=== PATIENT | female | born 1965 | race Caucasian/White ===

== ENCOUNTER → 2017-08-21 08:23 | Outpatient (CLI) | payer OTHER, SELFPAY | PROVIDERS: Family Provider Family Medicine; PCP Family Medicine; Visit Provider Internal Medicine Endocrinology, Diabetes & Metabolism | DX: N20.0 Calculus of kidney (principal) ==

== ENCOUNTER → 2017-09-13 06:02 | Outpatient (CLI) | payer OTHER, SELFPAY ==
[2017-09-13 07:59] LABS: BUN 22 mg/dL (7-18); Creatinine, Serum 1.04 mg/dL (0.55-1.02); Glucose 110 mg/dL (74-106)
[2017-09-13 08:00] LABS: ALB/GLOB Ratio 1.2 RATIO (0.9-2.4); AST(SGOT) 25 U/L (15-37); Alanine Aminotransfer ALT/SGPT 54 U/L (13-56); Albumin, Serum 3.8 g/dL (3.2-5.0); Alkaline Phosphatase 132 U/L (45-117); Anion Gap 10 (5-15); BUN/Creat Ratio 21.2 RATIO (10-20); CPK Total, Creatine Kinase 73 U/L (26-192); Chloride 98 mmol/L (98-107); EST Glomerular Filtration Rate 59 mL/min (>60); Est Glom Filt Rate - Afr Amer 71 mL/min (>60); Globulin 3.3 g/dL (2.2-4.2); Potassium 3.4 mmol/L (3.5-5.1); Protein, Total 7.1 g/dL (6.4-8.2); Sodium Level 136 mmol/L (136-145); Thyroid Stim Hormone (TSH) 1.24 uIU/mL (0.358-3.74)
[2017-09-13 08:26] LABS: PTHIN 48.3 pg/mL (18.4-80.1)
== END ==
PROVIDERS: Family Provider Family Medicine; PCP Family Medicine; Visit Provider Internal Medicine Endocrinology, Diabetes & Metabolism
DX: E03.8 Other specified hypothyroidism (principal); E21.1 Secondary hyperparathyroidism, not elsewhere classified; E83.42 Hypomagnesemia
CPT/HCPCS: 36415; 80053; 82550; 83735; 83970; 84443

== ENCOUNTER → 2017-09-25 16:46 | Outpatient (CLI) | payer OTHER, SELFPAY ==
[2017-09-25 17:39] LABS: Anion Gap 6 (5-15); BUN 25 mg/dL (7-18); BUN/Creat Ratio 27.3 RATIO (10-20); Calcium,Total 8.7 mg/dL (8.5-10.1); Chloride 105 mmol/L (98-107); Creatinine, Serum 0.92 mg/dL (0.55-1.02); EST Glomerular Filtration Rate 68 mL/min (>60); Est Glom Filt Rate - Afr Amer 82 mL/min (>60); Glucose 101 mg/dL (74-106); Potassium 3.7 mmol/L (3.5-5.1); Sodium Level 139 mmol/L (136-145)
== END ==
PROVIDERS: Family Provider Family Medicine; PCP Family Medicine; Visit Provider Family Medicine
DX: E87.6 Hypokalemia (principal)
CPT/HCPCS: 36415; 80048

== ENCOUNTER → 2017-10-25 06:22 | Outpatient (CLI) | payer OTHER, SELFPAY ==
[2017-10-25 07:30] LABS: ALB/GLOB Ratio 1.1 RATIO (0.9-2.4); AST(SGOT) 16 U/L (15-37); Alanine Aminotransfer ALT/SGPT 23 U/L (13-56); Albumin, Serum 3.8 g/dL (3.2-5.0); Alkaline Phosphatase 118 U/L (45-117); Anion Gap 8 (5-15); BUN 18 mg/dL (7-18); BUN/Creat Ratio 17.6 RATIO (10-20); Chloride 99 mmol/L (98-107); Creatinine, Serum 1.02 mg/dL (0.55-1.02); EST Glomerular Filtration Rate 60 mL/min (>60); Est Glom Filt Rate - Afr Amer 73 mL/min (>60); Globulin 3.4 g/dL (2.2-4.2); Glucose 116 mg/dL (74-106); Potassium 3.5 mmol/L (3.5-5.1); Protein, Total 7.2 g/dL (6.4-8.2); Sodium Level 137 mmol/L (136-145)
== END ==
PROVIDERS: Family Provider Family Medicine; PCP Family Medicine
DX: E03.8 Other specified hypothyroidism (principal)
CPT/HCPCS: 36415; 80053

== ENCOUNTER → 2017-11-16 06:25 | Outpatient (CLI) | payer OTHER, SELFPAY ==
--- NOTE | 2017-11-16 06:25 | DT_ITS ---
This patient was seen during an EMR downtime November 13, 2017 - November 20, 2017. This patient may have a combination of paper and electronic documentation or all paper documentation. All documentation is viewable within the e-chart portion of [facility] for each patient visit.
[2017-11-21 01:43] LABS: ALB/GLOB Ratio 1.2 RATIO (0.9-2.4); AST(SGOT) 16 U/L (15-37); Alanine Aminotransfer ALT/SGPT 36 U/L (13-56); Albumin, Serum 3.8 g/dL (3.2-5.0); Alkaline Phosphatase 113 U/L (45-117); Anion Gap 11 (5-15); BUN 21 mg/dL (7-18); Chloride 99 mmol/L (98-107); EST Glomerular Filtration Rate 62 mL/min (>60); Est Glom Filt Rate - Afr Amer 75 mL/min (>60); Free T3 3.2 pg/mL (2.18-3.98); Globulin 3.3 g/dL (2.2-4.2); Glucose 98 mg/dL (74-106); Potassium 3.9 mmol/L (3.5-5.1); Protein, Total 7.1 g/dL (6.4-8.2); Sodium Level 138 mmol/L (136-145); T4 Total, Thyroxin 14.7 ug/dL (4.8-13.9)
[2017-11-21 01:44] LABS: Thyroid Stim Hormone (TSH) 1.82 uIU/mL (0.358-3.74)
== END ==
PROVIDERS: Family Provider Family Medicine; PCP Family Medicine; Visit Provider Internal Medicine Endocrinology, Diabetes & Metabolism
DX: E03.9 Hypothyroidism, unspecified (principal); E87.6 Hypokalemia
CPT/HCPCS: 36415; 80053; 84436; 84443; 84481

== ENCOUNTER → 2018-05-14 14:50 | Outpatient (CLI) | payer OTHER, SELFPAY ==
[2018-05-14 18:22] LABS: Anion Gap 10 (5-15); BUN 20 mg/dL (7-18); BUN/Creat Ratio 22.1 RATIO (10-20); Calcium,Total 9.2 mg/dL (8.5-10.1); Chloride 100 mmol/L (98-107); EST Glomerular Filtration Rate 69 mL/min (>60); Est Glom Filt Rate - Afr Amer 83 mL/min (>60); Free T3 3.2 pg/mL (2.18-3.98); Glucose 85 mg/dL (74-106); Potassium 3.8 mmol/L (3.5-5.1); Sodium Level 139 mmol/L (136-145); T4 Total, Thyroxin 14.3 ug/dL (4.8-13.9); Thyroid Stim Hormone (TSH) 0.98 uIU/mL (0.358-3.74)
== END ==
PROVIDERS: Family Provider Family Medicine; PCP Family Medicine; Visit Provider Family Medicine
DX: E03.9 Hypothyroidism, unspecified (principal); R60.9 Edema, unspecified
CPT/HCPCS: 36415; 80048; 84436; 84443; 84481

== ENCOUNTER → 2018-06-19 12:55 | Outpatient (CLI) | payer OTHER, SELFPAY ==
[2018-06-19 14:10] LABS: Vitamin D,25 Hydroxy 65.7 ng/mL (29.95-100.01)
[2018-06-19 14:11] LABS: PTHIN 36.8 pg/mL (18.4-80.1)
[2018-06-19 14:15] LABS: ALB/GLOB Ratio 1.2 RATIO (0.9-2.4); AST(SGOT) 24 U/L (15-37); Alanine Aminotransfer ALT/SGPT 56 U/L (13-56); Albumin, Serum 3.8 g/dL (3.2-5.0); Alkaline Phosphatase 108 U/L (45-117); Anion Gap 8 (5-15); BUN 14 mg/dL (7-18); BUN/Creat Ratio 15.4 RATIO (10-20); Calcium,Total 8.8 mg/dL (8.5-10.1); Chloride 102 mmol/L (98-107); Creatinine, Serum 0.91 mg/dL (0.55-1.02); EST Glomerular Filtration Rate 69 mL/min (>60); Est Glom Filt Rate - Afr Amer 83 mL/min (>60); Globulin 3.2 g/dL (2.2-4.2); Glucose 86 mg/dL (74-106); Potassium 3.8 mmol/L (3.5-5.1); Sodium Level 138 mmol/L (136-145); Thyroid Stim Hormone (TSH) 1.44 uIU/mL (0.358-3.74)
== END ==
PROVIDERS: Family Provider Family Medicine; PCP Family Medicine; Referring Provider Internal Medicine Endocrinology, Diabetes & Metabolism; Visit Provider Internal Medicine Endocrinology, Diabetes & Metabolism
DX: E03.8 Other specified hypothyroidism (principal); E21.1 Secondary hyperparathyroidism, not elsewhere classified; E55.9 Vitamin D deficiency, unspecified
CPT/HCPCS: 36415; 80053; 82306; 83970; 84443

== ENCOUNTER → 2018-11-16 08:37 | Outpatient (CLI) | payer OTHER, SELFPAY ==
--- NOTE | 2018-11-16 08:43 | BI_ITS ---
MAMMOGRAPHY - BILATERAL SCREENING REASON FOR EXAM: Female, 53 years old. Routine annual screening examination. PERTINENT HISTORY: Non-contributory. TECHNIQUE: Digital bilateral breast leatha (3D mammographic acquisition) in the CC and MLO projections. 2-D mediolateral oblique (MLO) and craniocaudad (CC) views of both breasts were obtained. CAD: Full Field Digital Mammography with Computer Added Detection was performed. COMPARISON: Comparison is made with prior study January 16, 2017. FINDINGS: Breast Composition: There are scattered areas of fibroglandular density. There are no dominant masses or suspicious calcifications. Stable benign-appearing bilateral axillary lymph nodes. No other significant abnormalities are identified. There has been no significant change since the prior study. BI/SCREEN MAMM (CAD) W/LEATHA BILAT IMPRESSION: Stable bilateral screening mammogram. Yearly follow-up mammogram recommended. (A) ASSESSMENT CATEGORY: BIRADS Category 2: Benign. A letter regarding these results will be sent to the patient by the facility within 30 days. Approximately 10% of breast cancers are not detected by mammography. A normal mammogram should not delay biopsy of a clinically suspicious abnormality. [id number] Electronically Signed: Frank Akins, at 9:43 EDT , Service support ,
== END ==
PROVIDERS: Family Provider Family Medicine; PCP Family Medicine; Referring Provider Obstetrics & Gynecology; Visit Provider Obstetrics & Gynecology
DX: Z12.31 Encounter for screening mammogram for malignant neoplasm of breast (principal)
CPT/HCPCS: 77063; 77067

== ENCOUNTER → 2018-12-25 10:15 | Outpatient (CLI) | payer OTHER, SELFPAY ==
[2018-12-25 11:24] LABS: ALB/GLOB Ratio 1.1 RATIO (0.9-2.4); AST(SGOT) 37 U/L (15-37); Alanine Aminotransfer ALT/SGPT 67 U/L (13-56); Albumin, Serum 3.5 g/dL (3.2-5.0); Alkaline Phosphatase 116 U/L (45-117); Anion Gap 8 (5-15); BUN 16 mg/dL (7-18); BUN/Creat Ratio 12.8 RATIO (10-20); Calcium,Total 8.5 mg/dL (8.5-10.1); Chloride 103 mmol/L (98-107); Cholesterol 140 mg/dL (200); Creatinine, Serum 1.25 mg/dL (0.55-1.02); EST Glomerular Filtration Rate 47 mL/min (>60); Est Glom Filt Rate - Afr Amer 57 mL/min (>60); Globulin 3.3 g/dL (2.2-4.2); Glucose 104 mg/dL (74-106); High Density Lipoprotein 49 mg/dL; Potassium 3.6 mmol/L (3.5-5.1); Protein, Total 6.8 g/dL (6.4-8.2); Sodium Level 140 mmol/L (136-145); Thyroid Stim Hormone (TSH) 0.73 uIU/mL (0.358-3.74); Triglycerides 112 mg/dL; Very Low Density Lipoprotein 22 mg/dL (5-40)
== END ==
PROVIDERS: Family Provider Family Medicine; PCP Family Medicine; Referring Provider Family Medicine; Visit Provider Family Medicine
DX: Z00.00 Encounter for general adult medical examination without abnormal findings (principal); E87.6 Hypokalemia; E03.9 Hypothyroidism, unspecified
CPT/HCPCS: 36415; 80053; 80061; 84443

== ENCOUNTER → 2019-01-24 06:38 | Outpatient (CLI) | payer OTHER, SELFPAY ==
[2019-01-24 07:36] LABS: ALB/GLOB Ratio 1.1 RATIO (0.9-2.4); AST(SGOT) 20 U/L (15-37); Alanine Aminotransfer ALT/SGPT 42 U/L (13-56); Albumin, Serum 3.8 g/dL (3.2-5.0); Alkaline Phosphatase 106 U/L (45-117); Anion Gap 6 (5-15); BUN 24 mg/dL (7-18); BUN/Creat Ratio 20.7 RATIO (10-20); Calcium,Total 9.2 mg/dL (8.5-10.1); Chloride 98 mmol/L (98-107); Creatinine, Serum 1.16 mg/dL (0.55-1.02); EST Glomerular Filtration Rate 52 mL/min (>60); Est Glom Filt Rate - Afr Amer 63 mL/min (>60); Globulin 3.6 g/dL (2.2-4.2); Glucose 131 mg/dL (74-106); Potassium 3.6 mmol/L (3.5-5.1); Protein, Total 7.4 g/dL (6.4-8.2); Sodium Level 136 mmol/L (136-145)
== END ==
PROVIDERS: Family Provider Family Medicine; PCP Family Medicine
DX: E03.8 Other specified hypothyroidism (principal)
CPT/HCPCS: 36415; 80053

== ENCOUNTER → 2019-08-26 06:31 | Outpatient (CLI) | payer OTHER, SELFPAY ==
[2019-08-26 08:15] LABS: ALB/GLOB Ratio 1.1 RATIO (0.9-2.4); AST(SGOT) 21 U/L (15-37); Alanine Aminotransfer ALT/SGPT 44 U/L (13-56); Albumin, Serum 3.7 g/dL (3.2-5.0); Alkaline Phosphatase 99 U/L (45-117); Anion Gap 6 (5-15); BUN 20 mg/dL (7-18); Calcium,Total 8.7 mg/dL (8.5-10.1); Chloride 103 mmol/L (98-107); Creatinine, Serum 0.91 mg/dL (0.55-1.02); EST Glomerular Filtration Rate 68 mL/min (>60); Est Glom Filt Rate - Afr Amer 83 mL/min (>60); Globulin 3.5 g/dL (2.2-4.2); Glucose 119 mg/dL (74-106); Potassium 3.4 mmol/L (3.5-5.1); Protein, Total 7.2 g/dL (6.4-8.2); Sodium Level 138 mmol/L (136-145)
== END ==
PROVIDERS: PCP Family Medicine; Referring Provider Internal Medicine Endocrinology, Diabetes & Metabolism; Visit Provider Internal Medicine Endocrinology, Diabetes & Metabolism
DX: E03.8 Other specified hypothyroidism (principal); E04.2 Nontoxic multinodular goiter; M85.9 Disorder of bone density and structure, unspecified
CPT/HCPCS: 36415; 80053; 82306; 84443

== ENCOUNTER → 2019-11-21 | Outpatient (CLI) | payer OTHER, SELFPAY ==
--- NOTE | 2019-11-21 10:06 | BI_ITS ---
MAMMOGRAPHY - BILATERAL SCREENING REASON FOR EXAM: Female, 54 years old. Routine annual screening examination. PERTINENT HISTORY: Non-contributory. TECHNIQUE: Digital bilateral breast leatha (3D mammographic acquisition) in the CC and MLO projections. 2-D mediolateral oblique (MLO) and craniocaudad (CC) views of both breasts were obtained. CAD: Full Field Digital Mammography with Computer Added Detection was performed. COMPARISON: Comparison is made with prior examination dated November 16, 2018. FINDINGS: Breast Composition: There are scattered areas of fibroglandular density. There are no dominant masses or suspicious calcifications. No other significant abnormalities are identified. There has been no significant change since the prior study. BI/SCREEN MAMM (CAD) W/LEATHA BILAT IMPRESSION: Stable bilateral screening mammogram. Yearly follow-up mammogram recommended. (A) ASSESSMENT CATEGORY: BIRADS Category 1: Negative. A letter regarding these results will be sent to the patient by the facility within 30 days. Approximately 10% of breast cancers are not detected by mammography. A normal mammogram should not delay biopsy of a clinically suspicious abnormality. [id number] Electronically Signed: Frakn Akins, at 10:47 EDT , Service support ,
== END | disposition home or self-care (01) ==
LOC: OPBI 10:03
PROVIDERS: PCP Family Medicine; Referring Provider Obstetrics & Gynecology; Visit Provider Obstetrics & Gynecology
DX: Z12.31 Encounter for screening mammogram for malignant neoplasm of breast (principal)
CPT/HCPCS: 77063; 77067

== ENCOUNTER → 2020-03-10 06:30 | Outpatient (CLI) | payer OTHER, SELFPAY ==
[2020-03-10 07:26] LABS: ALB/GLOB Ratio 1.1 RATIO (0.9-2.4); AST(SGOT) 18 U/L (15-37); Alanine Aminotransfer ALT/SGPT 39 U/L (13-56); Albumin, Serum 3.5 g/dL (3.2-5.0); Alkaline Phosphatase 105 U/L (45-117); Anion Gap 3 (5-15); BUN 17 mg/dL (7-18); BUN/Creat Ratio 17.5 RATIO (10-20); Calcium,Total 8.5 mg/dL (8.5-10.1); Chloride 106 mmol/L (98-107); Creatinine, Serum 0.97 mg/dL (0.55-1.02); EST Glomerular Filtration Rate 63 mL/min (>60); Est Glom Filt Rate - Afr Amer 76 mL/min (>60); Globulin 3.2 g/dL (2.2-4.2); Glucose 103 mg/dL (74-106); Potassium 3.6 mmol/L (3.5-5.1); Protein, Total 6.7 g/dL (6.4-8.2); Sodium Level 139 mmol/L (136-145); Thyroid Stim Hormone (TSH) 2.74 uIU/mL (0.358-3.74)
== END ==
PROVIDERS: PCP Family Medicine; Referring Provider Internal Medicine Endocrinology, Diabetes & Metabolism; Visit Provider Internal Medicine Endocrinology, Diabetes & Metabolism
DX: E03.8 Other specified hypothyroidism (principal)
CPT/HCPCS: 36415; 80053; 83735; 84443

== ENCOUNTER → 2020-07-22 09:43 | Outpatient (CLI) | payer OTHER, SELFPAY ==
[2020-07-22 12:41] LABS: Absolute Lymphocyte Count 1.39 X10^3/uL (0.83-4.51); Absolute Neutrophil Count 5.2 X10^3/uL (2.0-7.7); Basophil# 0.05 X10^3/uL; Basophil% 0.7 % (0-1); Eosinophil# 0.16 X10^3/uL; Eosinophils% 2.1 % (0-5); Hematocrit 43.5 % (37-47); Hemoglobin 14.8 g/dL (12.0-15.0); Lymphocyte # 1.39 X10^3/ul (4.0); Lymphocyte % 18.3 % (19-41); Mean Corpuscular Hgb 31.9 pg (27.0-32.0); Mean Corpuscular Volume 93.8 fL (81-99); Mean Platelet Vol. 12.2 fl (6.2-12.0); Monocyte# 0.83 X10^3/uL; Monocyte% 10.9 % (0-10); NRBC Flagged by Analyzer 0 % (0-5); Neutrophil # 5.15 X10^3/uL (2.7-7.7); Neutrophil % 67.7 % (47-70); Platelet Count 268 K/mm3 (150-450); RBC Distribution Width CV 11.9 % (11.6-14.6); RBC Distribution Width SD 40.9 fl (35.1-43.9); Red Blood Count 4.64 M/mm3 (4.2-5.4); White Blood Count 7.6 K/mm3 (4.4-11.0)
[2020-07-22 12:46] LABS: AST(SGOT) 31 U/L (15-37); Alanine Aminotransfer ALT/SGPT 54 U/L (13-56); Albumin, Serum 3.8 g/dL (3.2-5.0); Alkaline Phosphatase 112 U/L (45-117); Anion Gap 2 (5-15); BUN 12 mg/dL (7-18); BUN/Creat Ratio 12.2 RATIO (10-20); Calcium,Total 8.8 mg/dL (8.5-10.1); Chloride 99 mmol/L (98-107); Creatinine, Serum 0.98 mg/dL (0.55-1.02); EST Glomerular Filtration Rate 62 mL/min (>60); Est Glom Filt Rate - Afr Amer 76 mL/min (>60); Globulin 3.7 g/dL (2.2-4.2); Glucose 103 mg/dL (74-106); Lipase 60 U/L (73-393); Potassium 3.6 mmol/L (3.5-5.1); Protein, Total 7.5 g/dL (6.4-8.2); Sodium Level 135 mmol/L (136-145)
== END ==
PROVIDERS: PCP Family Medicine; Referring Provider Family Medicine; Visit Provider Family Medicine
DX: R10.9 Unspecified abdominal pain (principal)
CPT/HCPCS: 36415; 80053; 83690; 85025

== ENCOUNTER → 2020-07-22 16:32 | Outpatient (CLI) | payer OTHER, SELFPAY ==
--- NOTE | 2020-07-22 16:33 | US_ITS ---
STUDY: ABDOMINAL ULTRASOUND - RIGHT UPPER QUADRANT REASON FOR VISIT: Female, 55 years old. Right upper quadrant pain following eating. Nausea and vomiting. TECHNIQUE: Ultrasound evaluation of the right upper quadrant was performed with real-time and static huddleston-scale imaging. TECHNICAL QUALITY: Adequate. COMPARISON: None. FINDINGS: Liver: The liver measures 13.8 cm. There is normal echogenicity of the liver. The bile ducts are within normal limits. There is hepatic color flow. The direction of portal flow is hepatopetal. There is no demonstrated mass lesion. Gallbladder: Normal distended gallbladder. The gallbladder wall measures 2 mm. There is a negative sonographic Hernandez''s sign. There is no pericholecystic fluid. There are no gallstones. Common Bile Duct (C.B.D.): The common bile duct measures 5 mm. Pancreas: Normal size of the head, body and tail of the pancreas. There is normal echogenicity of the pancreas. There is no demonstrated pancreatic mass or cyst. Right Kidney: Normal size of the right kidney. The right kidney measures 10.1 cm. Normal renal cortex. There is no demonstrated renal mass or cyst. There is no right hydronephrosis. US/Abdomen Limited IMPRESSION: Normal right upper quadrant ultrasound examination. Electronically Signed: Terrance Garcia MD at 17:54 EST Tel , Service support ,
== END ==
PROVIDERS: PCP Family Medicine; Referring Provider Family Medicine; Visit Provider Family Medicine
DX: R10.9 Unspecified abdominal pain (principal)
CPT/HCPCS: 76705

== ENCOUNTER 2020-07-28 05:45 | Day surgery (SDC) | payer OTHER, SELFPAY ==
[2020-07-23 07:33] VITALS: BMI 30.1
[2020-07-28] VITALS (10 sets, daily range): BP systolic 95–137; BP diastolic 60–84; PULSE 54–64; RESP 16; TEMP 36.4–36.6; O2SAT 93–100; BMI 30.8
--- NOTE | 2020-07-28 06:10 | HP.PCM_ITS ---
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 Is patient in pain?: No Allergies bee venom protein (honey bee) Allergy (Mild, Verified 07/23/20 07:27) hives Medications cetirizine 10 mg capsule 10 mg PO DAILY PRN 07/23/20 [History Confirmed 07/23/20] cholecalciferol (vitamin D3) 25 mcg (1,000 unit) capsule 25 mcg PO BID cap 07/23/20 [History Confirmed 07/23/20] levothyroxine 88 mcg tablet 88 mcg PO DAILY tab 07/23/20 [History Confirmed 07/23/20] mecobalamin (vitamin B12) 5,000 mcg disintegrating tablet 5,000 mcg PO BID tab 07/23/20 [History Confirmed 07/23/20] ondansetron HCl 4 mg tablet 4 mg PO BID tab 07/23/20 [History Confirmed 07/23/20] spironolactone 100 mg tablet 100 mg PO DAILY 07/23/20 [History Confirmed 07/23/20] spironolactone 50 mg-hydrochlorothiazide 50 mg tablet 1 tab PO DAILY 07/23/20 [History Confirmed 07/23/20] Is last menstrual period known: No Post menopausal: Yes Patient : No PFSH Medical History (Updated 07/23/20 @ 08:[address] Kristian Jj MD) Abdominal pain (Acute) GERD (gastroesophageal reflux disease) (Acute) Hypothyroidism (Acute) Peripheral edema (Acute) Seasonal allergic reaction (Acute) Surgical History (Updated 07/23/20 @ 07:38 by Mouna Stone) History of breast lump removal (Acute) History of partial hysterectomy (Acute) History of wisdom tooth extraction (Acute) Hx of local excision of skin lesion (Acute) Status post fine needle biopsy (Acute) Family History (Updated 07/23/20 @ 07:39 by Mouna Stone) Father Cancer prostate CVA (cerebral vascular accident) Brother Heart disease Kidney disease Sister Gastric ulcer Scleroderma Social History (Updated 07/23/20 @ 08:[address] Kristian Jj MD) Smoking Status: Unknown if ever smoked HPI HPI HPI: MAHAD GARCIA, is a 55 F who presents to the office today for surgical consultation regarding acute episode of epigastric pain nausea some vomiting dark stools and diarrhea. The patient is referred by Dr. Go Gonzalez and a written copy my surgical consult recommendations will be returned to him The patient is noting tenderness in the right upper quadrant. She had laboratory obtained including a complete metabolic profile and a CBC which was not remarkable. She also had a gallbladder ultrasound performed yesterday which also was normal. She has not had any fever. She is still having some discomfort today. She has not had something like this in the past. It is of no that she previously fairly long-term was on a acid reducing medicine. Nizatidine. That became unavailable and she stopped taking it approximately May. With this abdominal pain she has had a episode yesterday of dark-colored stool. She has not had any jaundice. She does have a significant of seasonal allergies. Her most current recent colonoscopy was September 28, 2015. That was screening exam at age 50. That was normal with repeat exam recommended for [address] Tito Oquendo performed that procedure for her. She has never had an upper endoscopy. HPI HPI HPI: MAHAD GARCIA, is a 55 F who presents to the office today for ROS General General: No weight change, appetite, fatigue, colon cancer, breast cancer or weakness HEENT HEENT: No difficulty swallowing, eye injury, eye surgery, swollen glands or hoarseness Endo Endocrine: Yes thyroid disease; no diabetes mellitus, thyroid cancer, Hair loss, heat intolerance or cold intolerance Musc Musculoskeletal: Yes back problems; no arthritis, rheumatoid arthritis, gout or joint pain Cardio Cardiovascular: No murmur, pacemaker, heart disease, atrial fibrillation, high blood pressure, heart attack, heart stent, palpitations, shortness of breat with exertion or chest pain Psych Psychiatric: No depression, anxiety or hearing voices Resp Respiratory: No shortness of breath, No sleep apnea, No cough, No COPD, No asthma, No emphysema, No wheezing Gastro Gastrointestinal: Yes abdominal pain, Yes nausea or vomiting, Yes diarrhea, No constipation, No blood in stool, Yes acid reflux, No hemorrhoids, No ulcers, No gallbladder problem, No black,tarry stools Hung Hematologic: No blood thinners, No blood disorders, No bleeding, No anemia, No blood clots Neuro Neurologic: No weakness Exam Const General: cooperative, healthy appearing, comfortable, no acute distress Nutritional Appearance: overweight Orientation: alert, awake [facility] Head: normal to inspection Eyes General: appearance normal, both eyes and all related structures Neck Neck: normal visual inspection Chest Chest palpation & inspection: normal inspection of the chest Resp Effort & Inspection: normal respiratory effort Auscultation: clear to auscultation bilaterally Cardio Rate: regular rate Rhythm: regular rhythm Heart Sounds: no murmurs GI Auscultation: normal bowel sounds Other: Soft, tenderness to mild palpation right subcostal upper quadrant. No hepatosplenomegaly. Skin General: no rashes or lesions noted Neuro Cognition: normal cognition Extrem General: no calf tenderness Psych Affect: normal affect Assessment & Plan Problems 1. Right upper quadrant abdominal pain R10.11 Plan Right upper quadrant abdominal pain with diarrhea nausea vomiting undetermined etiology. The patient has been on long-term acid reducing medication and because of the lack of availability stopped taking it May. She has never had a previous upper endoscopy. Her liver function tests normal. Gallbladder ultrasound normal. Certainly she could have biliary dyskinesia but I am more suspicious that this is acute gastritis or ulceration. She certainly could have H pylori. She has multiple other allergies making eosinophilic esophagitis even and potential issue. I recommend to her that she initiate omeprazole 20 mg twice daily. If that does not provide assistance then convert to 40 mg twice a day. I am recommending to her a esophagogastroduodenoscopy. I would anticipate likely duodenal gastric and esophageal biopsies. I discussed the technique, benefit, risk and alternatives. If that is absolutely unremarkable though I suspect that this is the etiology to her discomfort then we would pursue a hepatobiliary scan. She has had an opportunity to ask and have questions answered. We will schedule and expedite her care. I very much appreciate the kind opportunity of assisting with her surgical management. Copy: Dr. Go Jj M.D., F.A.C.S. Orders Orders: EGD Today Coding Level of Care Code 58749 Diagnoses Right upper quadrant abdominal pain R10.11 ??Abdominal location: right upper quadrant I have re-examined the patient. There are no clinical changes since date of exam. Procedure Criteria Procedure Type: Elective COVID Risk Discussion: The surgeon/proceduralist and patient have discussed in detail the risk of exposure to and/or potential harm posed by the COVID-19 virus with having a surgery/procedure at this time versus the risk of delaying the surgery/procedure. It is not possible to know either the risk of delaying the surgery or procedure or chance of getting an infection with perfect accuracy, but a joint decision was made between the patient and the surgeon/proceduralist to proceed at this time with the scheduled surgery/procedure as indicated on the consent form.
[2020-07-28] MEDS: Lactated Ringers 1,000 ML 100 ML IV (06:23)
--- NOTE | 2020-07-28 06:30 | EGD_PTH ---
PATIENT: MAHAD GARCIA LOC: EN U#:[id number] AGE/SX: 55/F ROOM: RE07/28/[address]: Dr. Kristian Jj MD : 1965 BED: DIS: 07/28/2020 SPEC #: [id number] RECD: 07/28/20 06:30 STATUS: VELMA RICH #: [id number] ABDIRAHMAN: 07/28/20 06:[address]: Kristian Jj DEPT: SURGICAL PATHOLOGY RECD BY: Toni Parker ENTERED: 07/28/20 11:50 SP TYPE: EGD BIOPSY OTHR DR: Dr. Go Gonzalez MD Tissues: A - Duodenum, NOS B - Gastric mucous membrane C - Stomach, NOS D - Esophageal mucous membrane E - Esophagus, NOS Procedures: Special Stain Group II Surgery Specimen Level IV Alcian Blue/PAS (control) HEADER OPERATION: EGD (MOD) PRE-OP DIAGNOSIS: GERD TISSUE SUBMITTED: A - Duodenum biopsy, B - Antrum biopsy for histo and H. pylori, C - Greater curvature polyp biopsy, D - Distal esophagus biopsy, E - Mid esophagus biopsy MICROSCOPIC DIAGNOSIS A. Duodenum, biopsy: A fragment of duodenal mucosa with mild congestion and hemorrhage. B. Antrum, biopsy: Mild gastritis and mucosal congestion. See microscopic description and comment. C. Greater curvature polyp, biopsy: A fragment of gastric mucosa with changes suggestive of fundic gland polyp and mild chronic inflammation. D. Distal esophagus, biopsy: Fragments of gastroesophageal mucosa with rare cells with Intestinal metaplasia (goblet cell metaplasia suspicious for Briones's esophagus. Focal mild chronic inflammation and minimal acute inflammation. Negative for dysplasia. See comment. E. Mid esophagus, biopsy: A fragment of squamous epithelium, no pathologic diagnosis. SJ:simon 07/29/2020 COMMENT B. The results of immunohistochemistry for Helicobacter pylori will be reported separately ([id number]). D. Alcian blue/PAS stain with matched control is used in the evaluation of the specimen. MICROSCOPIC DESCRIPTION Slides are reviewed. B. The specimen shows fragments of gastric mucosa with chronic inflammatory cell infiltrates in the lamina propria consisting of lymphocytes and plasma cells, consistent with mild chronic gastritis. Mild mucosal congestion is also noted. GROSS DESCRIPTION A - Received in fixative is one container labeled with the patient's name and designated duodenum biopsy. The specimen consists of one irregular fragment of light ruelas soft tissue that measures 0.5 x 0.2 x 0.1 cm. The specimen is totally submitted in one cassette. B - Received in fixative is one container labeled with the patient's name and designated antrum biopsy. The specimen consists of one irregular fragment of light ruelas soft tissue that measures 0.3 x 0.2 x 0.1 cm. The specimen is totally submitted in one cassette. C - Received in fixative is one container labeled with the patient's name and designated greater curvature polyp biopsy. The specimen consists of one irregular fragment of light ruelas soft tissue that measures 0.6 x 0.2 x 0.1 cm. The specimen is totally submitted in one cassette. D - Received in fixative is one container labeled with the patient's name and designated distal esophagus biopsy. The specimen consists of multiple irregular fragments of light ruelas soft tissue that in aggregate measure 1 x 0.6 x <0.1 cm. The specimen is totally submitted in one cassette. E - Received in fixative is one container labeled with the patient's name and designated mid esophagus biopsy. The specimen consists of one irregular fragment of light ruelas soft tissue that measures 0.5 x 0.3 x <0.1 cm. The specimen is totally submitted in one cassette. / AM:simon 07/28/20 TC:3 CPT: 49573 x5, 76242
--- NOTE | 2020-07-28 06:30 | IMM_PTH ---
PATIENT: MAHAD GARCIA LOC: EN U#:[id number] AGE/SX: 55/F ROOM: RE07/28/[address]: Dr. Kristian Jj MD : 1965 BED: DIS: 07/28/2020 SPEC #: [id number] RECD: 07/28/20 13:21 STATUS: VELMA REWes #: [id number] ABDIRAHMAN: 07/28/20 06:[address]: Kristian Jj DEPT: IMMUNOHISTOCHEMISTRY RECD BY: Candi Hidalgo ENTERED: 07/28/20 13:22 SP TYPE: IMMUNO OTHR DR: Dr. Go Gonzalez MD Tissues: B - Stomach, NOS Procedures: H Pylori (initial) PHYSICIAN & INSTITUTION [place] [id number] SPECIMEN INFORMATION: Tissue Source: B - Antrum biopsy Clinical Info: GERD Specimen Number: [id number] CPT code: 47581 METHODOLOGY: Deparaffinized sections of prefer/formalin-fixed tissue or PAP/DQ stained slides are incubated with monoclonal/polyclonal antibodies/oligonucleotide probes. Localization is made via biotin free immunoperoxidase method. Appropriate controls are performed and reacted as expected. Results on target cell population are indicated in the following table: RESULTS: ANTIBODY / CLONE RESULT Block B H Pylori (polyclonal) negative These tests were developed and their performance characteristics determined by [facility]. They may not have been cleared or approved by the U.S. Food and Drug Administration. The FDA has determined that such clearance or approval is not necessary. INTERPRETATION: B. Antrum, biopsy: Negative for Helicobacter pylori organisms. SJ:simon 07/29/2020
--- NOTE | 2020-07-28 06:50 | OP.EGD_ITS ---
Patient Name: Smita Phillip Procedure Date: 07/28/2020 5:57 AM Date of : 1965 Age: 55 Procedure: Upper GI endoscopy Indications: Epigastric abdominal pain Providers: Kristian Jj MD Referring MD: Go Gonzalez MD Medicines: Midazolam 4 mg IV, Meperidine 75 mg IV Complications: No immediate complications. Procedure: Pre-Anesthesia Assessment: - Prior to the procedure, a History and Physical was performed, and patient medications and allergies were reviewed. The patient's tolerance of previous anesthesia was also reviewed. The risks and benefits of the procedure and the sedation options and risks were discussed with the patient. All questions were answered, and informed consent was obtained. Prior Anticoagulants: The patient has taken no previous anticoagulant or antiplatelet agents. ASA Grade Assessment: II - A patient with mild systemic disease. After reviewing the risks and benefits, the patient was deemed in satisfactory condition to undergo the procedure. After obtaining informed consent, the endoscope was passed under direct vision. Throughout the procedure, the patient's blood pressure, pulse, and oxygen saturations were monitored continuously. The gastroscope was introduced through the mouth, and advanced to the second part of duodenum. The upper GI endoscopy was accomplished without difficulty. The patient tolerated the procedure well. Moderate Sedation: Moderate (conscious) sedation was personally administered by the endoscopist. The following parameters were monitored: oxygen saturation, heart rate, blood pressure, and response to care. Total physician intraservice time was 12 minutes. Scope In: 6:34:43 AM Scope Out: 6:40:58 AM Total Procedure Duration Time 0 hours 6 minutes 15 seconds Findings: Esophagitis with no bleeding was found 40 cm from the incisors. Biopsies were taken with a cold forceps for histology. The mid esophagus was normal. Biopsies were taken with a cold forceps for histology. A small hiatal hernia was present. Multiple pedunculated and sessile polyps with no bleeding and no stigmata of recent bleeding were found in the gastric fundus and in the gastric body. The polyp was removed with a cold biopsy forceps. Resection and retrieval were complete. Diffuse mildly erythematous mucosa without bleeding was found in the gastric antrum. Biopsies were taken with a cold forceps for histology. Diffuse mildly erythematous mucosa without active bleeding and with no stigmata of bleeding was found in the duodenal bulb. Biopsies were taken with a cold forceps for histology. Impression: - Reflux esophagitis. Biopsied. - Normal mid esophagus. Biopsied. - Small hiatal hernia. - Multiple gastric polyps. Resected and retrieved. - Erythematous mucosa in the antrum. Biopsied. - Erythematous duodenopathy. Biopsied I suspect esophagitis, gastritis, duodenitis as likely source of epigastric pain. Will pursue acid suppression as patient is improved. If medication fails then consider hepatobiliary scan. Biopsies pending. Recommendation: - Discharge patient to home. - Resume previous diet. - Continue present medications. - Use Pepcid (famotidine) 20 mg PO BID. Procedure Code(s): --- Professional --- 78412, Esophagogastroduodenoscopy, flexible, transoral; with biopsy, single or multiple 15575, 59, Moderate sedation services provided by the same physician or other qualified health care partner performing the diagnostic or therapeutic service that the sedation supports, requiring the presence of an independent trained observer to assist in the monitoring of the patient's level of consciousness and physiological status; initial 15 minutes of intraservice time, patient age 5 years or older Diagnosis Code(s): --- Professional --- K21.0, Gastro-esophageal reflux disease with esophagitis K44.9, Diaphragmatic hernia without obstruction or gangrene K31.7, Polyp of stomach and duodenum K31.89, Other diseases of stomach and duodenum R10.13, Epigastric pain CPT copyright 2017 [employer]. All rights reserved. The codes documented in this report are preliminary and upon apprentice architect review may be revised to meet current compliance requirements. Kristian Jj MD 07/28/2020 6:50:24 AM This report has been signed electronically. Number of Addenda: 0 Note Initiated On: 07/28/2020 5:57 AM
--- NOTE | 2020-07-28 06:50 | OP.CCLET_ITS ---
07/28/2020 Go Gonzalez MD [address] [id number] Re : Upper GI endoscopy procedure for Smita Phillip Dear Dr. Gonzalez This procedure was performed on Tuesday, July 28, 2020. My impressions and recommendations are as follows: Impressions : - Reflux esophagitis. Biopsied. - Normal mid esophagus. Biopsied. - Small hiatal hernia. - Multiple gastric polyps. Resected and retrieved. - Erythematous mucosa in the antrum. Biopsied. - Erythematous duodenopathy. Biopsied I suspect esophagitis, gastritis, duodenitis as likely source of epigastric pain. Will pursue acid suppression as patient is improved. If medication fails then consider hepatobiliary scan. Biopsies pending. Recommendations : - Discharge patient to home. - Resume previous diet. - Continue present medications. - Use Pepcid (famotidine) 20 mg PO BID. My findings are described in the full procedure note, which is enclosed. If I can be of further assistance, please feel free to contact me at Doctor phone number(s): Work: . Sincerely, Kristian Jj MD 07/28/2020 6:50:24 AM This report has been signed electronically.
== END 2020-07-28 07:42 | disposition home or self-care (01) ==
LOC: EN 05:45 → AC 05:45
PROVIDERS: PCP Family Medicine; Referring Provider Family Medicine; Visit Provider Surgery
PROC: (CPT 43239; principal; 2020-07-28 06:25)
DX: K29.50 Unspecified chronic gastritis without bleeding (principal); Z20.822 Contact with and (suspected) exposure to COVID-19; K21.00 Gastro-esophageal reflux disease with esophagitis, without bleeding; K44.9 Diaphragmatic hernia without obstruction or gangrene; K31.7 Polyp of stomach and duodenum; K31.89 Other diseases of stomach and duodenum; Z79.899 Other long term (current) drug therapy
CPT/HCPCS: 43239; 87426; 88305; 88313; 88342; 99152; 99153; C9803; J7120

== ENCOUNTER → 2021-04-21 16:14 | Outpatient (CLI) | payer OTHER, SELFPAY ==
--- NOTE | 2021-04-21 16:17 | BI_ITS ---
MAMMOGRAPHY - BILATERAL SCREENING REASON FOR EXAM: Female, 55 years old. Routine annual screening examination. PERTINENT HISTORY: Non-contributory. TECHNIQUE: Digital bilateral breast leatha (3D mammographic acquisition) in the CC and MLO projections. 2-D mediolateral oblique (MLO) and craniocaudad (CC) views of both breasts were obtained. CAD: Full Field Digital Mammography with Computer Added Detection was performed. COMPARISON: Comparison is made with prior study dated 11/21/2019 and 11/16/2018. FINDINGS: Breast Composition: There are scattered areas of fibroglandular density. There are no dominant masses or suspicious calcifications. Small benign-appearing bilateral axillary lymph nodes. No other significant abnormalities are identified. There has been no significant change since the prior study. BI/SCRN MAMM (CAD)W/LEATHA BILAT IMPRESSION: Stable bilateral screening mammogram. Yearly follow-up mammogram recommended. (A) ASSESSMENT CATEGORY: BIRADS Category 2: Benign. A letter regarding these results will be sent to the patient by the facility within 30 days. Approximately 10% of breast cancers are not detected by mammography. A normal mammogram should not delay biopsy of a clinically suspicious abnormality. [id number] Electronically Signed: Frank Akins MD at 8:25 EST , Service support ,
== END ==
PROVIDERS: PCP Family Medicine; Referring Provider Obstetrics & Gynecology; Visit Provider Obstetrics & Gynecology
DX: Z12.31 Encounter for screening mammogram for malignant neoplasm of breast (principal)
CPT/HCPCS: 77063; 77067

== ENCOUNTER 2021-09-23 11:35 | Outpatient (CLI) | payer OTHER, SELFPAY ==
[2021-09-23 15:27] LABS: Vitamin D,25 Hydroxy 47.4 ng/mL
[2021-09-23 15:48] LABS: ALB/GLOB Ratio 1.4 RATIO (0.9-2.4); AST(SGOT) 21 U/L (15-37); Alanine Aminotransfer ALT/SGPT 48 U/L (13-56); Alkaline Phosphatase 106 U/L (45-117); Anion Gap 5 (5-15); BUN 12 mg/dL (7-18); BUN/Creat Ratio 12.2 RATIO (10-20); Calcium,Total 8.6 mg/dL (8.5-10.1); Chloride 105 mmol/L (98-107); Creatinine, Serum 0.98 mg/dL (0.55-1.02); EST Glomerular Filtration Rate 62 mL/min (>60); Est Glom Filt Rate - Afr Amer 75 mL/min (>60); Globulin 2.9 g/dL (2.2-4.2); Glucose 100 mg/dL (74-106); Magnesium 2.1 mg/dL (1.6-2.6); Potassium 3.8 mmol/L (3.5-5.1); Protein, Total 6.9 g/dL (6.4-8.2); Sodium Level 139 mmol/L (136-145); Thyroid Stim Hormone (TSH) 0.83 uIU/mL (0.358-3.74)
[2021-09-24 08:04] LABS: PTHIN 38.6 pg/mL (18.4-80.1)
== END 2021-09-23 23:59 | disposition home or self-care (01) ==
LOC: MTLAB 11:36
PROVIDERS: PCP Family Medicine; Referring Provider Internal Medicine Endocrinology, Diabetes & Metabolism; Visit Provider Internal Medicine Endocrinology, Diabetes & Metabolism
DX: E03.8 Other specified hypothyroidism (principal); E21.1 Secondary hyperparathyroidism, not elsewhere classified; E55.9 Vitamin D deficiency, unspecified; E83.42 Hypomagnesemia
CPT/HCPCS: 36415; 80053; 82306; 83735; 83970; 84443

== ENCOUNTER → 2022-04-27 | Outpatient (CLI) | payer OTHER, SELFPAY ==
[2022-04-27 10:33] LABS: ALB/GLOB Ratio 1.2 RATIO (0.9-2.4); AST(SGOT) 17 U/L (15-37); Alanine Aminotransfer ALT/SGPT 42 U/L (13-56); Albumin, Serum 3.9 g/dL (3.2-5.0); Alkaline Phosphatase 100 U/L (45-117); Anion Gap 6 (5-15); BUN 12 mg/dL (7-18); BUN/Creat Ratio 14.1 RATIO (10-20); Calcium,Total 8.5 mg/dL (8.5-10.1); Chloride 102 mmol/L (98-107); Creatinine, Serum 0.85 mg/dL (0.55-1.02); EST Glomerular Filtration Rate 73 mL/min (>60); Est Glom Filt Rate - Afr Amer 89 mL/min (>60); Globulin 3.3 g/dL (2.2-4.2); Glucose 112 mg/dL (74-106); Potassium 3.7 mmol/L (3.5-5.1); Protein, Total 7.2 g/dL (6.4-8.2); Sodium Level 137 mmol/L (136-145); Thyroid Stim Hormone (TSH) 1.24 uIU/mL (0.358-3.74)
== END | disposition home or self-care (01) ==
LOC: LAB 09:37
PROVIDERS: PCP Family Medicine; Visit Provider Internal Medicine Endocrinology, Diabetes & Metabolism
DX: E03.8 Other specified hypothyroidism (principal); E04.2 Nontoxic multinodular goiter
CPT/HCPCS: 36415; 80053; 84443

== ENCOUNTER → 2022-06-02 | Outpatient (CLI) | payer OTHER, SELFPAY ==
--- NOTE | 2022-06-02 15:18 | BI_ITS ---
MAMMOGRAPHY - BILATERAL SCREENING REASON FOR EXAM: Female, 57 years old. Routine annual screening examination. PERTINENT HISTORY: Non-contributory. TECHNIQUE: Digital bilateral breast leatha (3D mammographic acquisition) in the CC and MLO projections. 2-D mediolateral oblique (MLO) and craniocaudad (CC) views of both breasts were obtained. CAD: Full Field Digital Mammography with Computer Added Detection was performed. COMPARISON: Comparison is made with prior study dated 04/21/2021 and 11/21/2019. FINDINGS: Breast Composition: There are scattered areas of fibroglandular density. There are no dominant masses or suspicious calcifications. Stable small benign-appearing bilateral axillary lymph nodes. No other significant abnormalities are identified. There has been no significant change since the prior study. BI/SCRN MAMM (CAD)W/LEATHA BILAT IMPRESSION: Stable bilateral screening mammogram. Yearly follow-up mammogram recommended. (A) ASSESSMENT CATEGORY: BIRADS Category 2: Benign. A letter regarding these results will be sent to the patient by the facility within 30 days. Approximately 10% of breast cancers are not detected by mammography. A normal mammogram should not delay biopsy of a clinically suspicious abnormality. [id number] Electronically Signed: Frank Akins MD at 8:01 EST ,
== END | disposition home or self-care (01) ==
LOC: OPBI 15:16
PROVIDERS: PCP Family Medicine; Referring Provider Obstetrics & Gynecology; Visit Provider Obstetrics & Gynecology
DX: Z12.31 Encounter for screening mammogram for malignant neoplasm of breast (principal)
CPT/HCPCS: 77063; 77067

== ENCOUNTER → 2022-07-13 | Outpatient (CLI) | payer OTHER, SELFPAY ==
--- NOTE | 2022-07-13 10:15 | RAD_ITS ---
STUDY: X-RAY - LEFT FOOT CLINICAL: Female, 57 years old. PAIN TECHNIQUE: 3 view(s) of the foot. COMPARISON: None. FINDINGS: Normal talus,, and tarsal bones. Small plantar calcaneal spur Normal visualized subtalar, talonavicular, calcaneocuboid, tarsal and tarsometatarsal articulations. Normal metatarsi. Normal metatarsophalangeal joint of the great toe. Normal tibial and fibular sesamoid bones. Normal interphalangeal joint of the great toe. Normal phalanges of the great toe. Normal second through fifth metatarsophalangeal joints. Normal interphalangeal joints and phalanges of the lesser toes. The soft tissue structures are unremarkable. RAD/Foot min 3 Views IMPRESSION: No evidence for acute fracture or dislocation.. Bone scan or MRI would be helpful to exclude possibility of radiographically occult stress fracture if clinically indicated Electronically Signed: Baron Roldan MD at 22:27 EST ,
[2022-07-13 12:31] LABS: Absolute Neutrophil Count 3.9 X10^3/uL (2.0-7.7); Basophil# 0.05 X10^3/uL; Basophil% 0.8 % (0-1); Eosinophil# 0.12 X10^3/uL; Eosinophils% 1.9 % (0-5); Hematocrit 43.3 % (37-47); Hemoglobin 14.5 g/dL (12.0-15.0); Lymphocyte % 25.2 % (19-41); Mean Corp Hgb Conc 33.5 g/dL (32-36); Mean Corpuscular Hgb 31.7 pg (27.0-32.0); Mean Corpuscular Volume 94.5 fL (81-99); Mean Platelet Vol. 11.8 fl (6.2-12.0); Monocyte# 0.64 X10^3/uL; Monocyte% 10.1 % (0-10); NRBC Flagged by Analyzer 0 % (0-5); Neutrophil # 3.92 X10^3/uL (2.7-7.7); Neutrophil % 61.5 % (47-70); Platelet Count 230 K/mm3 (150-450); RBC Distribution Width CV 12.3 % (11.6-14.6); RBC Distribution Width SD 42.6 fl (35.1-43.9); Red Blood Count 4.58 M/mm3 (4.2-5.4); White Blood Count 6.4 K/mm3 (4.4-11.0)
[2022-07-13 12:55] LABS: Anion Gap 6 (5-15); BUN 14 mg/dL (7-18); BUN/Creat Ratio 14.4 RATIO (10-20); Calcium,Total 9.2 mg/dL (8.5-10.1); Chloride 106 mmol/L (98-107); Cholesterol 198 mg/dL (200); Creatinine, Serum 0.97 mg/dL (0.55-1.02); EST Glomerular Filtration Rate 63 mL/min (>60); Est Glom Filt Rate - Afr Amer 76 mL/min (>60); Glucose 104 mg/dL (74-106); High Density Lipoprotein 53 mg/dL; Potassium 4.6 mmol/L (3.5-5.1); Sodium Level 141 mmol/L (136-145); Thyroid Stim Hormone (TSH) 0.74 uIU/mL (0.358-3.74); Triglycerides 111 mg/dL; Very Low Density Lipoprotein 22 mg/dL (5-40)
== END | disposition home or self-care (01) ==
LOC: MTLAB 10:13
PROVIDERS: PCP Family Medicine; Referring Provider Family Medicine; Visit Provider Family Medicine
DX: Z00.00 Encounter for general adult medical examination without abnormal findings (principal); M79.673 Pain in unspecified foot; E03.9 Hypothyroidism, unspecified; R07.89 Other chest pain
CPT/HCPCS: 36415; 73630; 80048; 80061; 84443; 85025

== ENCOUNTER → 2022-07-25 | Outpatient (CLI) | payer OTHER, SELFPAY ==
--- NOTE | 2022-07-25 12:03 | STRESSREP_ITS ---
Stress Test Report Exercise myocardial perfusion stress test. 57-year-old lady with a history of chest pressure. Stress protocol: Resting EKG demonstrates normal sinus rhythm with a rate of 62 bpm resting blood pressure is 134/98 mmHg. The patient exercised according to the regular Stevie protocol for a total duration of 7 minutes and 32 seconds attaining a maximum heart rate of 146 bpm which was 90% of maximum predicted heart rate; the maximum workload was 10.1 metabolic equivalents. At rest there were no ST or T wave changes noted to suggest ischemia and at peak exercise upsloping ST changes only were noted which did not meet the criteria for ischemia. No clinical angina was noted the test was terminated due to the target heart rate being achieved /fatigue. The peak blood pressure was 184/82 mmHg. Rate-pressure product was 26,800. Myocardial perfusion protocol. 11.5 mCi of technetium 99m sestamibi was injected at rest. The patient exercised according to regular Stevie protocol for total duration of 7 minutes and 32 seconds and at peak exercise 34.3 mCi of technetium 99m sestamibi was injected stress images were obtained stress and rest images were reconstructed in comparing the short axis vertical long and horizontal long axis. Gated images were also obtained. Perfusion SPECT analysis: Review of the stress images demonstrate normal uptake of tracer noted in all areas of the myocardium. The resting images similarly demonstrate normal uptake of tracer noted in all areas of the myocardium. No areas of reversibility are noted to suggest ischemia no previous infarct was noted. Gated SPECT analysis: The gated ejection fraction is 74%. Conclusion: Normal exercise myocardial perfusion stress test at a high workload Preserved ejection fraction.
== END | disposition home or self-care (01) ==
LOC: CVS 06:35
PROVIDERS: PCP Family Medicine; Referring Provider Family Medicine; Visit Provider Family Medicine
DX: R07.89 Other chest pain (principal)
CPT/HCPCS: 78452; 93017; A9500; A4216

== ENCOUNTER → 2022-08-12 | Outpatient (CLI) | payer OTHER, SELFPAY ==
[2022-08-12 15:51] LABS: Hemoglobin A1c 5.6 % (3.8-5.6)
== END | disposition home or self-care (01) ==
LOC: MFPLAB 12:12
PROVIDERS: PCP Family Medicine; Visit Provider Family Medicine
DX: R73.09 Other abnormal glucose (principal)
CPT/HCPCS: 36415; 83036

== ENCOUNTER → 2023-01-02 | Outpatient (CLI) | payer OTHER, SELFPAY ==
[2023-01-02 09:20] LABS: PTHIN 56.1 pg/mL (18.4-80.1)
[2023-01-02 09:24] LABS: Insulin 15.6 mU/L (2.6-37.6); Vitamin D,25 Hydroxy 45.3 ng/mL
[2023-01-02 09:39] LABS: ALB/GLOB Ratio 1.2 RATIO (0.9-2.4); AST(SGOT) 16 U/L (15-37); Alanine Aminotransfer ALT/SGPT 33 U/L (13-56); Albumin, Serum 3.7 g/dL (3.2-5.0); Alkaline Phosphatase 110 U/L (45-117); Anion Gap 4 (5-15); BUN 14 mg/dL (7-18); BUN/Creat Ratio 15.3 RATIO (10-20); Calcium,Total 8.8 mg/dL (8.5-10.1); Chloride 107 mmol/L (98-107); Creatinine, Serum 0.92 mg/dL (0.55-1.02); EST Glomerular Filtration Rate 67 mL/min (>60); Est Glom Filt Rate - Afr Amer 81 mL/min (>60); Globulin 3.2 g/dL (2.2-4.2); Glucose 113 mg/dL (74-106); Magnesium 2.2 mg/dL (1.6-2.6); Potassium 3.9 mmol/L (3.5-5.1); Protein, Total 6.9 g/dL (6.4-8.2); Sodium Level 140 mmol/L (136-145); Thyroid Stim Hormone (TSH) 3.14 uIU/mL (0.358-3.74)
== END | disposition home or self-care (01) ==
LOC: LAB 07:20
PROVIDERS: PCP Family Medicine; Referring Provider Internal Medicine Endocrinology, Diabetes & Metabolism; Visit Provider Internal Medicine Endocrinology, Diabetes & Metabolism
DX: E03.8 Other specified hypothyroidism (principal); E21.1 Secondary hyperparathyroidism, not elsewhere classified; E04.2 Nontoxic multinodular goiter; E55.9 Vitamin D deficiency, unspecified; E88.81 Metabolic syndrome and other insulin resistance
CPT/HCPCS: 36415; 80053; 82306; 83525; 83735; 83970; 84443

== ENCOUNTER → 2023-01-03 | Outpatient (CLI) | payer OTHER, SELFPAY | END | disposition home or self-care (01) | LOC: LAB 07:59 | PROVIDERS: PCP Family Medicine; Referring Provider Physician Assistant; Visit Provider Physician Assistant | DX: E27.9 Disorder of adrenal gland, unspecified (principal) | CPT/HCPCS: 36415; 82533 ==

== ENCOUNTER → 2023-02-21 | Outpatient (CLI) | payer OTHER, SELFPAY ==
[2023-02-21 11:18] LABS: 24HR. Urine Creatinine 1.22 g/24 HR (0.70-1.90)
[2023-02-24 12:09] LABS: Cortisol, Free 24Ur 18 ug/24 hr (6-42); Cortisol, Urinary Free 11 ug/L (Undefined)
== END | disposition home or self-care (01) ==
LOC: LABSPEC 07:26
PROVIDERS: PCP Family Medicine; Referring Provider Internal Medicine Endocrinology, Diabetes & Metabolism; Visit Provider Internal Medicine Endocrinology, Diabetes & Metabolism
DX: E27.9 Disorder of adrenal gland, unspecified (principal)
CPT/HCPCS: 81050; 82530; 82570

== ENCOUNTER → 2023-07-12 | Outpatient (CLI) | payer OTHER, SELFPAY ==
--- NOTE | 2023-07-12 13:50 | BI_ITS ---
MAMMOGRAPHY - BILATERAL SCREENING REASON FOR EXAM: Female, 58 years old. Routine annual screening examination. PERTINENT HISTORY: Aunt with breast cancer. TECHNIQUE: Digital bilateral breast leatha (3D mammographic acquisition) in the CC and MLO projections. 2-D mediolateral oblique (MLO) and craniocaudad (CC) views of both breasts were obtained. CAD: Full Field Digital Mammography with Computer Added Detection was performed. COMPARISON: Comparison is made with prior study dated June 02, 2022 and April 21, 2021. FINDINGS: Breast Composition: There are scattered areas of fibroglandular density. There are no dominant masses or suspicious calcifications. No other significant abnormalities are identified. There has been no significant change since the prior study. BI/SCRN MAMM (CAD)W/LEATHA BILAT IMPRESSION: Stable bilateral screening mammogram. Yearly follow-up mammogram recommended. (A) ASSESSMENT CATEGORY: BIRADS Category 1: Negative. A letter regarding these results will be sent to the patient by the facility within 30 days. Approximately 10% of breast cancers are not detected by mammography. A normal mammogram should not delay biopsy of a clinically suspicious abnormality. [id number] Electronically Signed: Frank Akins MD at 10:26 EST ,
== END | disposition home or self-care (01) ==
LOC: OPBI 13:50
PROVIDERS: PCP Family Medicine; Referring Provider Family Medicine; Visit Provider Family Medicine
DX: Z12.31 Encounter for screening mammogram for malignant neoplasm of breast (principal)
CPT/HCPCS: 77063; 77067

== ENCOUNTER → 2023-08-04 | Outpatient (CLI) | payer OTHER, SELFPAY ==
--- OUTSIDE RECORDS SUMMARY | 2023-08-04 08:10 | XMS RPT_ITS | CCD ---
Author Name Unknown Address [address] [place] [address] Organization [facility] Care Team Providers Care Well Head Pumper Name Role Phone DOMINIQUE MADERA Unavailable Unavailable REFERRING, TINY WO [phone] Unavailable Unava ilable Results Test Name Value Interpretation Reference Range Facil ity Encounters Encounter Date Encounter Type Care Provider Facility Start: 05-28-2017 End: 05-28-2017 Emergency department patient visit DOMINIQUE MADERA Facil ity:B Payers Date Payer Category Payer Unknown [id number] Summary Purpose Family History No Family History Records Found Advance Directives No Advanced Directives Records Found Additional Source Comments INFORMATION SOURCE (unrecogn ized section and content) FOR RECORDS PERTAINING TO PATIENTS WHO ARE OR HAVE BEEN ENROLLED IN A CHEMICAL DEPENDENCY/SUBSTANCEABUSE PROGRAM, SOME INFORMATION MAY BE OMITTED. This clinical summary was aggregated from multiple sources. Caution should be exercised in using it in the provision of clinical care. This summary normalizes information from multiple sources, and as a consequence, information in this document may materially change the coding, format and clinical context of patient data. In addition, data may be omitted in some cases. CLINICAL DECISIONS SHOULD BE BASED ON THE PRIMARY CLINICAL RECORDS. [employer] provides no warranty or guarantee of the accuracy or completeness of information in this document.
[2023-08-04 09:18] LABS: ALB/GLOB Ratio 1.2 RATIO (0.9-2.4); AST(SGOT) 16 U/L (15-37); Alanine Aminotransfer ALT/SGPT 44 U/L (13-56); Albumin, Serum 3.8 g/dL (3.2-5.0); Alkaline Phosphatase 127 U/L (45-117); Anion Gap 4 (5-15); BUN 21 mg/dL (7-18); BUN/Creat Ratio 20.4 RATIO (10-20); Chloride 106 mmol/L (98-107); Creatinine, Serum 1.03 mg/dL (0.55-1.02); EST Glomerular Filtration Rate 58 mL/min (>60); Est Glom Filt Rate - Afr Amer 71 mL/min (>60); Globulin 3.3 g/dL (2.2-4.2); Glucose 124 mg/dL (74-106); Magnesium 2.3 mg/dL (1.6-2.6); Potassium 4.2 mmol/L (3.5-5.1); Protein, Total 7.1 g/dL (6.4-8.2); Sodium Level 140 mmol/L (136-145); Thyroid Stim Hormone (TSH) 1.64 uIU/mL (0.358-3.74)
== END | disposition home or self-care (01) ==
LOC: LAB 07:56
PROVIDERS: PCP Family Medicine; Referring Provider Internal Medicine Endocrinology, Diabetes & Metabolism; Visit Provider Internal Medicine Endocrinology, Diabetes & Metabolism
DX: E03.8 Other specified hypothyroidism (principal); E83.42 Hypomagnesemia
CPT/HCPCS: 36415; 80053; 83735; 84443

== ENCOUNTER → 2023-10-04 | Outpatient (CLI) | payer OTHER, SELFPAY ==
--- NOTE | 2023-10-04 11:37 | RAD_ITS ---
STUDY: X-RAY - RIGHT KNEE REASON FOR EXAM: Female, 58 years old. PAIN TECHNIQUE: 4 view(s) of the knee. COMPARISON: None. FINDINGS: Normal visualized distal femur. Normal visualized proximal tibia and fibula. Normal proximal tibiofibular articulation. There is no demonstrated fracture. Normal medial femorotibial compartment. Normal lateral femorotibial compartment. Normal patellofemoral articulation. There is no demonstrated joint effusion. The soft tissue structures are unremarkable. RAD/Knee 4 or More Views IMPRESSION: Normal x-ray examination of the knee. Electronically Signed: Timothy Hercules MD at 22:57 EDT ,
[2023-10-04 16:29] LABS: Anion Gap 7 (5-15); BUN 16 mg/dL (7-18); BUN/Creat Ratio 15.2 RATIO (10-20); Calcium,Total 9.1 mg/dL (8.5-10.1); Chloride 106 mmol/L (98-107); Cholesterol 190 mg/dL (200); Creatinine, Serum 1.05 mg/dL (0.55-1.02); EST Glomerular Filtration Rate 57 mL/min (>60); Est Glom Filt Rate - Afr Amer 69 mL/min (>60); Glucose 94 mg/dL (74-106); High Density Lipoprotein 47 mg/dL; Potassium 4.2 mmol/L (3.5-5.1); Sodium Level 140 mmol/L (136-145); Thyroid Stim Hormone (TSH) 1.01 uIU/mL (0.358-3.74); Triglycerides 108 mg/dL; Very Low Density Lipoprotein 22 mg/dL (5-40)
== END | disposition home or self-care (01) ==
PROVIDERS: PCP Family Medicine; Referring Provider Family Medicine; Visit Provider Family Medicine
DX: M25.561 Pain in right knee (principal); E03.9 Hypothyroidism, unspecified; I10 Essential (primary) hypertension
CPT/HCPCS: 36415; 73564; 80048; 80061; 84443

== ENCOUNTER 2023-10-06 06:04 | Day surgery (SDC) | payer OTHER, SELFPAY ==
[2023-10-06] VITALS (7 sets, daily range): BP systolic 104–145; BP diastolic 66–77; PULSE 47–63; RESP 16–18; TEMP 36.4–36.9; O2SAT 93–98; BMI 30.2
--- NOTE | 2023-10-06 06:22 | HP.PCM_ITS ---
History and Physical Date of Admission: 10/06/23 Chief Complaint: repeat EGD Soda Maker Required: No Is patient in pain?: No Allergies bee venom protein (honey bee) Allergy (Mild, Verified 07/21/23 14:12) hivesascorbic acid Allergy (Verified 07/21/23 14:12) Hives Medications cetirizine 10 mg capsule (Zyrtec) 10 mg PO DAILY PRN Allergies 07/23/20 [History Confirmed 07/21/23] cholecalciferol (vitamin D3) 25 mcg (1,000 unit) capsule 25 mcg PO BID 07/23/20 [History Confirmed 07/21/23] levothyroxine 88 mcg tablet 88 mcg PO DAILY 07/23/20 [History Confirmed 07/21/23] mecobalamin (vitamin B12) 5,000 mcg disintegrating tablet 5,000 mcg PO DAILY 07/23/20 [History Confirmed 07/21/23] ondansetron HCl 4 mg tablet 4 mg PO BID PRN Nausea 07/23/20 [History Confirmed 07/21/23] spironolactone 100 mg tablet 100 mg PO DAILY 07/23/20 [History Confirmed 07/21/23] spironolactone 50 mg-hydrochlorothiazide 50 mg tablet (Aldactazide) 1 tab PO DAILY 07/23/20 [History Confirmed 07/21/23] omeprazole 20 mg capsule,delayed release 20 mg PO BID 07/28/20 [History Confirmed 07/21/23] famotidine 20 mg tablet (Pepcid) 20 mg PO BID #90 tabs 08/03/20 [Rx Confirmed 07/21/23] PFSH Medical History Abdominal pain GERD (gastroesophageal reflux disease) Hypothyroidism Insomnia Peripheral edema Seasonal allergic reaction Thyroid nodule Surgical History History of breast lump removal History of partial hysterectomy History of wisdom tooth extraction Hx of local excision of skin lesion Status post fine needle biopsy Family History Father Cancer prostate CVA (cerebral vascular accident)Brother Heart disease Kidney diseaseSister Gastric ulcer SclerodermaMother Thyroid disorder Hypertension Social History (Reviewed 07/21/23 @ 14:11 by MARJORIE Martinez Smoking Status: Never smoker HPI HPI HPI: 58-year-old female. I have assisted her most recently July 28, 2020 with an esophagogastroduodenoscopy. Reflux esophagitis was identified. Multiple gastric polyps. She was having epigastric pain at that time. Pathology suggested rare cells of intestinal metaplasia suspicious for Briones's esophagus with focal mild chronic inflammation and minimal acute inflammation of the distal esophagus. Mild gastritis and benign gastric polyps.H. pylori was negative. She returns now to discuss follow-up surveillance upper endoscopy. She is maintained on famotidine 20 mg orally twice daily and omeprazole 20 mg orally twice daily. The patient states that several months ago she had some increased problems with her reflux disease. She admits though that February they grow 18 acres of pumpkins apparently literally tens of thousands of [place] and it is a very stressful time. She would sometimes forget to take her medication. Most of the time she is on famotidine 20 mg orally twice daily. She is completely off of the PPIs. Occasionally will she will take 1/3 tablet of famotidine. Her symptoms are intermittent reflux heartburn symptoms. She denies cough. She does not elevate the head of her bed. We did discuss that today. ROS General General: Yes weight change and fatigue; No appetite, colon cancer, breast cancer or weakness HEENT HEENT: No difficulty swallowing, eye injury, eye surgery, swollen glands or hoarseness Endo Endocrine: No thyroid disease, diabetes mellitus, thyroid cancer, Hair loss, heat intolerance or cold intolerance Skin Skin: No rash or changing moles Musc Musculoskeletal: No back problems, arthritis, rheumatoid arthritis, gout or joint pain Cardio Cardiovascular: No murmur, pacemaker, heart disease, atrial fibrillation, high blood pressure, heart attack, heart stent, palpitations, shortness of breat with exertion or chest pain Psych Psychiatric: No depression, anxiety or hearing voices Resp Respiratory: No shortness of breath, No sleep apnea, No cough, No COPD, No asthma, No emphysema and No wheezing Gastro Gastrointestinal: No abdominal pain, Yes nausea or vomiting, Yes diarrhea, No constipation, No blood in stool, Yes acid reflux, No hemorrhoids, No ulcers, No gallbladder problem and No black,tarry stools Hung Hematologic: No blood thinners, No blood disorders, No bleeding, No anemia and No blood clots Neuro Neurologic: No numbness, No tingling and No weakness Exam Const General: cooperative, healthy appearing, comfortable and no acute distress Nutritional Appearance: average body habitus [facility] Head: normal to inspection Eyes General: appearance normal, both eyes and all related structures Neck Neck: normal visual inspection Resp Effort & Inspection: normal respiratory effort Auscultation: clear to auscultation bilaterally Cardio Rate: regular rate Rhythm: regular rhythm GI Inspection: normal to inspection Palpation: soft and no hepatosplenomegaly Skin General: no rashes or lesions noted Neuro General: patient alert, patient awake and patient oriented x3 Extrem General: no calf tenderness Psych Appearance: grossly normal Assessment and Plan Assessment and Plan (1) GERD (gastroesophageal reflux disease): Status: Acute Qualifiers: Esophagitis presence: esophagitis presence not specified Qualified Code(s): K21.9 - Gastro-esophageal reflux disease without esophagitis (2) Barretts esophagus: Status: Acute Qualifiers: Briones's esophagus type: without dysplasia Qualified Code(s): K22.70 - Briones's esophagus without dysplasia Plan: I discussed with her today the findings of the Briones's esophagus on previous biopsy. We extensive discussed conservative measures to assist with reflux control including putting shock blocks underneath the head of her bed and elevating the head of the bed. Avoiding eating within 2 hours of going to sleep and avoiding reflux inducing foods. She will try to do better with being consistent with her famotidine treatment. We then extensively discussed compared and contrasted the difference between famotidine and H2 sandie as well as PPIs. She is currently not on omeprazole or any other proton pump inhibitor. I finally breached the discussion regarding esophageal manometry testing to evaluate functioning of the esophagus. We briefly discussed potential surgical treatment options like laparoscopic repair for hiatal hernia with a surgical reflux wrap procedure. She has had an opportunity to ask and have questions answered. At this point she is hoping that medications could continue to alleviate her problems. Based upon her previous history of Briones's on biopsy we will schedule a repeat surveillance exam esophagogastroduodenoscopy with biopsy. She has had an opportunity to ask and have questions answered. I appreciate the ongoing opportunity of assisting with her surgical care. Copy: Dr. Go Jj M.D., F.A.C.S. I reviewed the patient's history and physical with her today. She has had an opportunity to ask and have questions answered. We anticipate proceeding with an esophagogastroduodenoscopy with anticipated biopsies and follow-up with Briones's esophagus. Kristian Jj M.D., F.A.C.S.
[2023-10-06] MEDS: Lactated Ringers 1,000 ML 15 ML IV (06:35)
--- NOTE | 2023-10-06 07:00 | EGD_PTH ---
PATIENT: MAHAD GARCIA LOC: EN U#:[id number] AGE/SX: 58/F ROOM: RE10/06/[address]: Dr. Kristian Jj MD : 1965 BED: DIS: 10/06/2023 SPEC #: [id number] RECD: 10/06/23 11:10 STATUS: VELMA RICH #: [id number] ABDIRAHMAN: 10/06/23 07:[address]: Kristian Jj DEPT: SURGICAL PATHOLOGY RECD BY: Bhavna Prajapati ENTERED: 10/06/23 11:58 SP TYPE: EGD BIOPSY OT DR: Dr. Go Gonzalez MD Tissues: A - Duodenum, NOS B - Gastric mucous membrane C - Esophagus, NOS D - Esophagus, NOS Procedures: Special Stain Group II Surgery Specimen Level IV Alcian Blue/PAS (control) HEADER OPERATION: EGD with biopsy PRE-OP DIAGNOSIS: GERD, Briones's esophagus TISSUE SUBMITTED: A- Duodenum biopsy, B- Antrum biopsy, C- Greater curvature polyp biopsy, D- Distal esophagus biopsy MICROSCOPIC DIAGNOSIS A. Duodenum, biopsy: No pathologic change. B. Gastric antrum, biopsy: Chronic gastritis. C. Greater curvature stomach, biopsy: Focal changes suggestive of fundic gland polyp. D. Distal esophagus, biopsy: Gastroesophageal junction with chronic inflammation. No evidence of goblet cell metaplasia. See comment. AM/ 10/10/2023 COMMENT B. The results of immunohistochemistry for Helicobacter pylori will be reported separately ([id number]). D. Alcian blue/PAS stain with matched control supports the above diagnosis. MICROSCOPIC DESCRIPTION Slides are reviewed. GROSS DESCRIPTION A. Received in fixative is one container labeled with the patient's name and designated Duodenum biopsy. The specimen consists of one irregular fragment of light ruelas soft tissue that measures 0.3 x 0.3 x 0.1 cm. The specimen is totally submitted in one cassette. B. Received in fixative is one container labeled with the patient's name and designated Antrum biopsy. The specimen consists of one irregular fragment of light ruelas soft tissue that measures 0.3 x 0.3 x 0.1 cm. The specimen is totally submitted in one cassette. C. Received in fixative is one container labeled with the patient's name and designated Greater curvature polyp biopsy. The specimen consists of multiple irregular fragments of light ruelas soft tissue that in aggregate measure 0.4 x 0.4 x 0.1 cm. The specimen is totally submitted in one cassette. D. Received in fixative is one container labeled with the patient's name and designated Distal esophagus biopsy. The specimen consists of multiple irregular fragments of light ruelas soft tissue that in aggregate measure 1.5 x 0.6 x 0.1 cm. The specimen is totally submitted in one cassette. Reza 10/06/2023 TC:3 CPT:68716a2,87398
--- NOTE | 2023-10-06 07:00 | IMM_PTH ---
PATIENT: MAHAD GARCIA LOC: EN U#:[id number] AGE/SX: 58/F ROOM: RE10/06/[address]: Dr. Kristian Jj MD : 1965 BED: DIS: 10/06/2023 SPEC #: [id number] RECD: 10/06/23 11:45 STATUS: VELMA REWes #: [id number] ABDIRAHMAN: 10/06/23 07:[address]: Kristian Jj DEPT: IMMUNOHISTOCHEMISTRY RECD BY: Angel Figueroa ENTERED: 10/06/23 11:45 SP TYPE: IMMUNO OTHR DR: Dr. Go Gonzalez MD Tissues: B - Stomach, NOS Procedures: H Pylori (initial) PHYSICIAN & INSTITUTION [place] [id number] SPECIMEN INFORMATION: Tissue Source: EGD with biopsy Clinical Info: GERD, Briones's esophagus Specimen Number: [id number] CPT code: 70493 METHODOLOGY: Deparaffinized sections of prefer/formalin-fixed tissue or PAP/DQ stained slides are incubated with monoclonal/polyclonal antibodies/oligonucleotide probes. Localization is made via biotin free immunoperoxidase method. Appropriate controls are performed and reacted as expected. Results on target cell population are indicated in the following table: RESULTS: ANTIBODY / CLONE RESULT Block B H Pylori (polyclonal) negative These tests were developed and their performance characteristics determined by [facility]. They may not have been cleared or approved by the U.S. Food and Drug Administration. The FDA has determined that such clearance or approval is not necessary. The above immunohistochemical/dualISH markers are ordered and reviewed by the Pathologist. INTERPRETATION: B. Antrum, biopsy: Negative for Helicobacter pylori organisms. ABA/ 10/10/2023
--- NOTE | 2023-10-06 07:46 | OP.CCLET_ITS ---
10/06/2023 Go Gonzalez MD [address] [place] [address] Re : Upper GI endoscopy procedure for Smita Muñozmichaelle Dear Dr. Gonzalez This procedure was performed on Friday, October 06, 2023. My impressions and recommendations are as follows: Impressions : - Reflux esophagitis with no bleeding. Rule out Briones's esophagus. Biopsied. Small hiatal hernia - Erythematous mucosa in the antrum. Biopsied. - Multiple gastric polyps. Resected and retrieved. - Erythematous duodenopathy. Biopsied. Recommendations : - Await pathology results. - Discharge patient to home. - Resume previous diet. - Continue present medications. - Telephone my office for pathology results in 1 week. My findings are described in the full procedure note, which is enclosed. If I can be of further assistance, please feel free to contact me at Doctor phone number(s): Work: . Sincerely, Kristian Jj MD 10/06/2023 7:46:16 AM This report has been signed electronically.
--- NOTE | 2023-10-06 07:46 | OP.EGD_ITS ---
Patient Name: Smita Phillip Procedure Date: 10/06/2023 7:21 AM Date of : 1965 Age: 58 Procedure: Upper GI endoscopy Indications: Follow-up of Briones's esophagus Providers: Kristian Jj MD Referring MD: Go Gonzalez MD Medicines: See the Anesthesia note for documentation of the administered medications Complications: No immediate complications. Procedure: Pre-Anesthesia Assessment: - Prior to the procedure, a History and Physical was performed, and patient medications and allergies were reviewed. The patient's tolerance of previous anesthesia was also reviewed. The risks and benefits of the procedure and the sedation options and risks were discussed with the patient. All questions were answered, and informed consent was obtained. Prior Anticoagulants: The patient has taken no anticoagulant or antiplatelet agents. ASA Grade Assessment: II - A patient with mild systemic disease. After reviewing the risks and benefits, the patient was deemed in satisfactory condition to undergo the procedure. After obtaining informed consent, the endoscope was passed under direct vision. Throughout the procedure, the patient's blood pressure, pulse, and oxygen saturations were monitored continuously. The gastroscope was introduced through the mouth, and advanced to the second part of duodenum. The upper GI endoscopy was accomplished without difficulty. The patient tolerated the procedure well. Scope In: 7:30:29 AM Scope Out: 7:39:25 AM Total Procedure Duration Time 0 hours 8 minutes 56 seconds Findings: Esophagitis with no bleeding was found 39 cm from the incisors. Biopsies were taken with a cold forceps for histology. Diffuse mildly erythematous mucosa without bleeding was found in the gastric antrum. Biopsies were taken with a cold forceps for histology. Multiple sessile polyps with no bleeding and no stigmata of recent bleeding were found in the gastric fundus, in the gastric body and on the greater curvature of the stomach. The polyp was removed with a cold biopsy forceps. Resection and retrieval were complete. Diffuse mildly erythematous mucosa without active bleeding and with no stigmata of bleeding was found in the duodenal bulb. Biopsies were taken with a cold forceps for histology. A small hiatal hernia was present. Impression: - Reflux esophagitis with no bleeding. Rule out Briones's esophagus. Biopsied. Small hiatal hernia - Erythematous mucosa in the antrum. Biopsied. - Multiple gastric polyps. Resected and retrieved. - Erythematous duodenopathy. Biopsied. Recommendation: - Await pathology results. - Discharge patient to home. - Resume previous diet. - Continue present medications. - Telephone my office for pathology results in 1 week. Procedure Code(s): --- Professional --- 67012, Esophagogastroduodenoscopy, flexible, transoral; with biopsy, single or multiple Diagnosis Code(s): --- Professional --- K21.00, Gastro-esophageal reflux disease with esophagitis, without bleeding K31.89, Other diseases of stomach and duodenum K31.7, Polyp of stomach and duodenum K22.70, Briones's esophagus without dysplasia CPT copyright 2021 [employer]. All rights reserved. The codes documented in this report are preliminary and upon campus safety officer review may be revised to meet current compliance requirements. Kristian Jj MD 10/06/2023 7:46:16 AM This report has been signed electronically. Number of Addenda: 0 Note Initiated On: 10/06/2023 7:21 AM
== END 2023-10-06 08:44 | disposition home or self-care (01) ==
LOC: EN 06:07 → AC 06:09
PROVIDERS: PCP Family Medicine; Referring Provider Family Medicine; Visit Provider Surgery
PROC: 0DJ08ZZ Inspection of Upper Intestinal Tract, Via Natural or Artificial Opening Endoscopic (ICD-10-PCS; CPT 43235; principal; 2023-10-06 06:55)
DX: K29.50 Unspecified chronic gastritis without bleeding (principal); K44.9 Diaphragmatic hernia without obstruction or gangrene; K21.00 Gastro-esophageal reflux disease with esophagitis, without bleeding; Z79.899 Other long term (current) drug therapy; Z79.890 Hormone replacement therapy; E03.9 Hypothyroidism, unspecified; E04.1 Nontoxic single thyroid nodule
CPT/HCPCS: 43239; 88305; 88313; 88342; J7120; J2405

== ENCOUNTER → 2023-11-20 | Outpatient (CLI) | payer OTHER, SELFPAY ==
[2023-11-20 08:40] LABS: PTHIN 76.5 pg/mL (18.4-80.1)
[2023-11-20 08:44] LABS: Vitamin D,25 Hydroxy 39.6 ng/mL
[2023-11-20 09:14] LABS: ALB/GLOB Ratio 1.2 RATIO (0.9-2.4); AST(SGOT) 23 U/L (15-37); Alanine Aminotransfer ALT/SGPT 32 U/L (13-56); Albumin, Serum 3.6 g/dL (3.2-5.0); Alkaline Phosphatase 105 U/L (45-117); Anion Gap 4 (5-15); BUN 14 mg/dL (7-18); BUN/Creat Ratio 14.1 RATIO (10-20); Calcium,Total 8.7 mg/dL (8.5-10.1); Chloride 105 mmol/L (98-107); Creatinine, Serum 0.99 mg/dL (0.55-1.02); EST Glomerular Filtration Rate 61 mL/min (>60); Est Glom Filt Rate - Afr Amer 74 mL/min (>60); Globulin 3.1 g/dL (2.2-4.2); Glucose 126 mg/dL (74-106); Magnesium 2.2 mg/dL (1.6-2.6); Protein, Total 6.7 g/dL (6.4-8.2); Sodium Level 136 mmol/L (136-145); Thyroid Stim Hormone (TSH) 1.75 uIU/mL (0.358-3.74)
== END | disposition home or self-care (01) ==
LOC: LAB 06:57
PROVIDERS: PCP Family Medicine; Referring Provider Internal Medicine Endocrinology, Diabetes & Metabolism; Visit Provider Internal Medicine Endocrinology, Diabetes & Metabolism
DX: E03.8 Other specified hypothyroidism (principal); E04.2 Nontoxic multinodular goiter; E21.1 Secondary hyperparathyroidism, not elsewhere classified
CPT/HCPCS: 36415; 80053; 82306; 83735; 83970; 84443

== ENCOUNTER → 2024-03-18 | Outpatient (CLI) | payer OTHER, SELFPAY ==
[2024-03-18 11:14] LABS: PTHIN 76.3 pg/mL (18.4-80.1)
[2024-03-18 12:00] LABS: ALB/GLOB Ratio 1.2 RATIO (0.9-2.4); AST(SGOT) 26 U/L (15-37); Alanine Aminotransfer ALT/SGPT 47 U/L (13-56); Albumin, Serum 3.8 g/dL (3.2-5.0); Alkaline Phosphatase 121 U/L (45-117); Anion Gap 7 (5-15); BUN 15 mg/dL (7-18); BUN/Creat Ratio 17.4 RATIO (10-20); Calcium,Total 9.2 mg/dL (8.5-10.1); Chloride 105 mmol/L (98-107); Creatinine, Serum 0.86 mg/dL (0.55-1.02); EST Glomerular Filtration Rate 71 mL/min (>60); Est Glom Filt Rate - Afr Amer 86 mL/min (>60); Globulin 3.2 g/dL (2.2-4.2); Glucose 125 mg/dL (74-106); Potassium 4.2 mmol/L (3.5-5.1); Sodium Level 138 mmol/L (136-145)
== END | disposition home or self-care (01) ==
LOC: LAB 10:17
PROVIDERS: PCP Family Medicine; Referring Provider Internal Medicine Endocrinology, Diabetes & Metabolism; Visit Provider Internal Medicine Endocrinology, Diabetes & Metabolism
DX: E03.8 Other specified hypothyroidism (principal); E21.1 Secondary hyperparathyroidism, not elsewhere classified; E55.9 Vitamin D deficiency, unspecified; E04.2 Nontoxic multinodular goiter
CPT/HCPCS: 36415; 80053; 82306; 83970; 84443

== ENCOUNTER → 2024-03-29 | Outpatient (CLI) | payer OTHER, SELFPAY ==
--- OUTSIDE RECORDS SUMMARY | 2024-03-29 08:21 | XMS RPT_ITS | CCD ---
Author Organization [facility] Inform ion Partnership [facility] Care Team Providers Care Surveyor Instrument Assistant Name Role Phone DOMINIQUE MADERA Unavailable Unavailable REFERRINGTINY WO [id number] Unavailable Unava ilable Results Test Name Value Interpretation Reference Range Facil ity [facility] Note on 05-28-2017 [facility] Normal [facility] ([place]) Patient Summary Documentson 05-28-2017 Patient Summary Documents Normal [facility] ([place]) XR ANKLE MINIMUM 3 VIEWS RIG HTon 05-28-2017 XR ANKLE MINIMUM 3 VIEWS RIGHT ORIGINALXR ANKLE MINIMUM 3 VIEWS RIGHT CLINICAL STATEMENT: pain COMPARISON: None FINDINGS: There is an oblique fracture through the distal fibula with surrounding soft tissue swelling. No significant displacement or distraction. No radiopaque foreign body. The talar dome is unremarkable. Plantar calcaneal spur. IMPRESSION: Oblique fracture of the distal fibula. Interpreted By: Bessie ClemonsPreliminary Report By: Bessie ClemonsElectronicall y Signed By: Bessie Clemons Dictated Date: 05/28/2017 6:05:55 PM Prelim Date: 05/28/2017 6:05:55 PM Sign Date: 05/28/2017 6:06:55 PM Normal [facility]) Encounters Encounter Date Encounter Type Care Provider Facility Start: 05-28-2017 End: 05-28-2017 Emergency department patient visit DOMINIQUE Bloom ity:B Payers Date Payer Category Payer Unknown [id number] Summary Purpose Family History No Family History Records Found Advance Directives No Advanced Directives Records Found Additional Source Comments INFORMATION SOURCE (unrecogn ized section and content) DATE CREATED AUTHOR 12/05/2017 [facility] ([place]) FOR RECORDS PERTAINING TO PATIENTS WHO ARE [...] BE BASED ON THE PRIMARY CLINICAL RECORDS. [employer] [facility]. provides no warranty or guarantee of the accuracy or completeness of information in this document.
[2024-04-01 16:10] LABS: Alkaline Phosphatase, Serum 117 IU/L (44-121); Bone Fraction 41 % (14-68); Intestinal Fraction 13 % (0-18); Liver Fraction 47 % (18-85)
== END | disposition home or self-care (01) ==
PROVIDERS: PCP Family Medicine; Referring Provider Internal Medicine Endocrinology, Diabetes & Metabolism; Visit Provider Internal Medicine Endocrinology, Diabetes & Metabolism
DX: R74.8 Abnormal levels of other serum enzymes (principal)
CPT/HCPCS: 36415; 84075; 84080

== ENCOUNTER → 2024-09-09 | Outpatient (CLI) | payer OTHER, SELFPAY ==
[2024-09-09 07:47] LABS: PTHIN 55 pg/mL (11-61)
[2024-09-09 07:49] LABS: ALB/GLOB Ratio 1.9 RATIO (0.9-2.4); AST(SGOT) 19 U/L (<=31); Alanine Aminotransfer ALT/SGPT 34 U/L (<=34); Albumin, Serum 4.2 g/dL (3.4-4.8); Alkaline Phosphatase 110 U/L (35-104); Anion Gap 12 (5-15); BUN 14 mg/dL (4-19); BUN/Creat Ratio 13.8 RATIO (10-20); Calcium,Total 9.1 mg/dL (7.6-11.0); Chloride 104 mmol/L (98-108); Creatinine, Serum 1.01 mg/dL (0.70-1.20); EST Glomerular Filtration Rate 64 (>60); Globulin 2.2 g/dL (2.2-4.2); Glucose 124 mg/dL (70-99); Potassium 4.3 mmol/L (3.3-5.1); Protein, Total 6.4 g/dL (5.9-8.4); Sodium Level 140 mmol/L (133-145); Total Bilirubin 0.35 mg/dL (0.00-1.30)
== END | disposition home or self-care (01) ==
LOC: LAB 06:58
PROVIDERS: PCP Family Medicine; Referring Provider Internal Medicine Endocrinology, Diabetes & Metabolism; Visit Provider Internal Medicine Endocrinology, Diabetes & Metabolism
DX: E03.8 Other specified hypothyroidism (principal); E21.1 Secondary hyperparathyroidism, not elsewhere classified
CPT/HCPCS: 36415; 80053; 83970; 84443

== ENCOUNTER → 2024-10-30 | Outpatient (CLI) | payer OTHER, SELFPAY ==
--- NOTE | 2024-10-30 14:30 | BI_ITS ---
EXAM: SCRN MAMM (CAD)W/LEATHA BILAT DATE: 10/30/2024 CLINICAL HISTORY: F, Age 59 y/o , SCREENING FOR BREAST CANCER BREAST CANCER RISK ASSESSMENT: Not reported TECHNIQUE: Bilateral screening digital breast tomosynthesis with 2D and 3D images. Computer aided detection. COMPARISON: None available FINDINGS: TISSUE DENSITY: The breast tissue is heterogenously dense, which may obscure small masses. Bilateral Breast Mammographic Findings: No suspicious masses, calcifications or other abnormalities are identified. BI/SCRN MAMM (CAD)W/LEATHA BILAT IMPRESSION: OVERALL FINAL ASSESSMENT: BIRADS 1 NEGATIVE RECOMMENDATION: Routine annual follow-up in 1 Year A letter with findings and recommendations will be mailed to the patient. Reading Location: [id number]
== END | disposition home or self-care (01) ==
LOC: OPBI 14:29
PROVIDERS: PCP Family Medicine; Referring Provider Family Medicine; Visit Provider Family Medicine
DX: Z12.31 Encounter for screening mammogram for malignant neoplasm of breast (principal)
CPT/HCPCS: 77063; 77067

== ENCOUNTER → 2025-03-07 | Outpatient (CLI) | payer OTHER, SELFPAY ==
--- OUTSIDE RECORDS SUMMARY | 2025-03-07 08:30 | XMS RPT_ITS | CCD ---
Author Organization [facility] CliniSyri Care Team Providers Care Field Artillery Crewmember Name Role Phone DOMINIQUE MADERA Unavailable Unavailable REFERRINGTINY [phone] Unavailable Unava ilable Lisa, Dr. Stiles Primary Care Provider Lisa, Dr. Stiles Referring Provider Lisa, Dr. Stiles Other Provider Alejo, Dr. May Attending Provider Lisa, Dr. Stiles Primary Care Provider Анна, Dr. Kristian Padilla Attending Provider [phone] [place], Dr. Kristian Padilla Referring Provider [phone] Lisa, Dr. Stiles Primary Care Provider Анна, Dr. Kristian Padilla Attending Provider [phone] [place], Dr. Kristian Padilla Referring Provider Lisa, Dr. Stiles Referring Provider Анна, Dr. Kristian Padilla Other Provider Lisa AMBROCIO, Dr. Stiles Primary Care Provider [phone] Dr. Jus Villarreal DO Attending Provider Dr. Jus Villarreal DO Referring Provider Dr. Go Gonzalez MD Attending Provider [phone] Lisa AMBROCIO, Dr. Stiles Referring Provider Jus Villarreal Referring Unavailable Go Gonzalez Primary Care Unavailable Jus Villarreal Attending Unavailable Go Gonzalez Primary Care Unavailable Jus Villarreal Attending Unavailable Jus Villarreal Referring Unavailable Go Gonzalez Primary Care Unavailable Jus Villarreal Attending Unavailable Jus Villarreal Referring Unavailable Jus Villarreal Attending Unavailable Go Gonzalez Primary Care Unavailable Jus Villarreal Referring Unavailable Go Gonzalez Primary Care Unavailable Go Gonzalez Attending Unavailable Go Gonzalez Referring Unavailable Allergies Allergy Classification Reported Allergen(s) Allergy Type Date of Onset Reaction(s) Facility (13 sources) Ascorbic Acid Drug Allergy 07-28-2020 [facility] (13 sources) bee venom protein (honey bee) Allergy to substance 07-23-2020 [facility] (1 source) Ascorbic Acid Drug Allergy 10-06-2023 [facility] (1 source) bee venom protein (honey bee) Drug allergy (disorder) 10-06-2023 [facility] Medications Current Medications Medication Drug Class(es) Dates Sig (Normalized) Sig (Original) cholecalciferol 0.025 mg oral capsule (13 sources) Vitamin D Start: 07-23-2020 take 1 capsule by mouth once daily Cholecalciferol (Vitamin D3) 25 mcg (1,000 unit) capsule Active 25 ug PO DAILY July 23, 2020 1:00am Start: 07-23-2020 take 25 ug by mouth twice daily Cholecalciferol (Vitamin D3) Active 25 MCG PO TWICE A DAY July 23, 2020 12:00am famotidine 20 mg oral tablet (13 sources) Histamine-2 Receptor Antagonist Start: 08-03-2020 take 1 tablet by mouth twice daily Famotidine (Pepcid) 20 mg tablet Active 20 mg PO TWICE A DAY 90 August 03, 2020 1:00am fexofenadine hydrochloride 60 mg oral tablet (4 sources) Histamine-1 Receptor Antagonist Start: 10-05-2023 take 2 tablets by mouth once daily as needed Fexofenadine (Aga Allergy) 60 mg tablet Active 120 mg PO DAILY as needed for allergy symptoms October 05, 2023 12:00am levothyroxine sodium 0.088 mg oral tablet (13 sources) l-Thyroxine Start: 07-23-2020 take 1 tablet by mouth once daily Levothyroxine 88 mcg tablet Active 88 ug PO DAILY July 23, 2020 1:00am Magnesium (4 sources) Start: 10-05-2023 take 1 tablet by mouth once daily Magnesium 200 mg tablet Active 200 mg PO DAILY October 05, 2023 12:00am Start: 10-05-2023 take 200 mg by mouth once gabriel y Magnesium Active 200 MG PO DAILY October 05, 2023 12:00am mecobalamin 5 mg disintegrating oral tablet (13 sources) Start: 07-23-2020 take 1 tablet by mouth once daily Mecobalamin (Vitamin B12) 5,000 mcg tablet,disintegrating Active 5000 ug PO DAILY July 23, 2020 1:00am potassium 99 mg extended release oral tablet (4 sources) Start: 10-05-2023 take 1 tablet by mouth once daily Potassium 99 mg tablet Active 99 mg PO DAILY October 05, 2023 12:00am spironolactone 100 mg oral tablet (13 sources) Aldosterone Antagonist Start: 07-23-2020 take 1 tablet by mouth once daily Spironolactone 100 mg tablet Active 100 mg PO DAILY July 23, 2020 1:00am Completed/Discontinued Medications Medication Drug Class(es) Dates Sig (Normalized) Sig (Original) amoxicillin 875 mg / clavulanate 125 mg oral tablet (13 sources) Penicillin-class Antibacterial Start: 05-17-2015 End: 07-23-2020 take 1 tablet by mouth every twelve hours Amoxicillin-Pot Clavulanate 875 MG tablet Discontinued 875 mg PO Q12H May 17, 2015 1:00am July 23, 2020 8:28am cetirizine hydrochloride 10 mg oral capsule (13 sources) Histamine-1 Receptor Antagonist Start: 07-23-2020 End: 10-05-2023 take 1 capsule by mouth once daily as needed Cetirizine (Zyrtec) 10 mg capsule Discontinued 10 mg PO DAILY as needed for Allergies July 23, 2020 1:00am October 05, 2023 10:01am hydroCHLOROthiazide 50 mg / spironolactone 50 mg oral tablet (13 sources) Thiazide Diuretic, Aldosterone Antagonist Start: 07-23-2020 End: 10-05-2023 take 1 tablet by mouth once daily Spironolacton-Hy drochlorothiaz (Aldactazide) 50-50 mg tablet Discontinued 1 {tbl} PO DAILY July 23, 2020 1:00am October 05, 2023 10:02am omeprazole 20 mg delayed release oral capsule (13 sources) Proton Pump Inhibitor Start: 07-28-2020 End: 10-05-2023 take 1 capsule by mouth twice daily Omeprazole 20 MG capsule Discontinued 20 mg PO TWICE A DAY July 28, 2020 1:00am October 05, 2023 10:02am ondansetron 4 mg oral tablet (13 sources) Serotonin-3 Receptor Antagonist Start: 07-23-2020 End: 10-05-2023 take 1 tablet by mouth twice daily as needed for nausea Ondansetron Hcl 4 mg tablet Discontinued 4 mg PO TWICE A DAY as needed for Nausea July 23, 2020 1:00am October 05, 2023 10:02am Problems Active Problems Problem Classification Problem Date Documented Date Episodic/Chronic Abdominal pain (13 sources) Abdominal pain; Translations: [Unspecified abdominal pain] 07-23-2020 Episodic Esophageal disorders (20 sources) Gastroesophageal reflux disease; Translations: [Gastro-esophageal reflux disease without esophagitis] 07-28-2020 Chronic Other screening for suspected conditions (not mental disorders or infectious disease) (1 source) Encounter for screening mammogram for malignant neoplasm of breast; Translations: [Encounter for screening mammogram for malignant neoplasm of breast] Onset: 11-04-2024 Episodic Other upper respiratory disease (13 sources) Seasonal allergy; Translations: [Other seasonal allergic rhinitis] 07-28-2020 Chronic Residual codes; unclassified (13 sources) Insomnia; Translations: [Insomnia, unspecified] 07-28-2020 Episodic Residual codes; unclassified (13 sources) Peripheral edema; Translations: [Edema, unspecified] 07-28-2020 Episodic Thyroid disorders (20 sources) Thyroid nodule; Translations: [Nontoxic single thyroid nodule] Onset: 09-12-2024 07-28-2020 Chronic Past or Other Problems Problem Classification Problem Date Documented Da te Episodic/Chronic Other liver diseases (1 source) Abnormal levels of other serum enzymes; Translations: [Abnormal levels of other serum enzymes] Onset: 04-24-2024 Episodic Results Test Name Value Interpretation Reference Range Facility Breast imaging reportOrdered By: Estelita Acuña on 10-30-2024 Study report [facility] Imaging Services [address] [place], [place] [address] SCRN MAMM (CAD)W/LEATHA BILAT MR#: [id number] Acct: [id number] Name: MAHAD GARCIA Rep #: [id number] : 1965 F 59 From: Kit Villasenor MD PCP: Dr. Go Gonzalez MD Status: REG C FLY Study:SCRN MAMM (CAD)W/LEATHA BILAT Date of Exa m: 10/30/24 Exam# [id number] Ordering Dr: Go Gonzalez MD EXAM: SCRN MAMM (CAD)W/LEATHA BILAT DATE: 10/30/2024 CLINICAL HISTORY: F, Age 59 y/o , SCREENING FOR BREAST CANCER BREAST CANCER RISK ASSESSMENT: Not reported TECHNIQUE: Bilateral screening digital breast tomosynthesis with 2D and 3D images. Computeraided detection. COMPARISON: None available FINDINGS: TISSUE DENSITY: The breast tissue is heterogenously dense, which may obscure small masses. Bilateral Breast Mammographic Findings: No suspicious masses, calcifications or other abnormalities are identified. BI/SCRN MAMM (CAD)W/LEATHA BILAT IMPRESSION: OVERALL FINAL ASSESSMENT: BIRADS 1 NEGATIVE RECOMMENDATION: Routine annual follow-up in 1 Year A letter with findings and recommendations will be mailed to the patient. Reading Location: [id number] CC: Dr. Go Gonzalez MD ~ Engine Test Cell Technician: Signed [facility] SCRN MAMM (CAD)W/LEATHA BILATo n 10-30-2024 SCRN MAMM (CAD)W/LEATHA BILAT [facility] Imaging Services [address] [place], [place] [address] SCRN MAMM (CAD)W/LEATHA BILAT MR#: [id number] Acct: [id number] Name: MAHAD GARCIA Rep #: [id number] : 1965 F 59 From: Estelita Cid i, MD PCP: Dr. Go Gonzalez MD Status: REG CLI Study: SCRN MAMM (CAD)W/LEATHA BILAT Date of Exam: 10/11 07/06 Exam# [id number] Ordering Dr: Go Gonzalez MD EXAM: SCRN MAMM (CAD)W/LEATHA BILAT DATE: 10/30/2024 CLINICAL HISTORY: F, Age 59 y/o , SCREENING FOR BREAST CANCER BREAST CANCER RISK ASSESSMENT: Not reported TECHNIQUE: Bilateral screening digital breast tomosynthesis with 2D and 3D images. Computer aided detection. COMPARISON: None available FINDINGS: TISSUE DENSITY: The breast tissue is heterogenously dense, which may obscure small masses. Bilateral Breast Mammographic Findings: No suspicious masses, calcifications or other abnormalities are identified. BI/SCRN MAMM (CAD)W/LEATHA BILAT IMPRESSION: OVERALL FINAL ASSESSMENT: BIRADS 1 NEGATIVE RECOMMENDATION: Routine annual follow-up in 1 Year A letter with findings and recommendations will be mailed to the patient. Reading Location: [id number] CC: Dr. Go Gonzalez MD Engine Test Cell Technician: Signed Normal [facility] Anion gap in Serum or Plasma Ordered By: Jus Villarreal on 09-09-2024 Anion gap [Moles/Vol] 12 mmol/L 5-15 [facility] BUN/creatinine ratioOrdered By: Jus Villarreal on 09-09-2024 Urea nitrogen/Creatinine [Mass ratio] 13.8 mg/mg 10-20 [facility] Bilirubin, totalOrdered By: Jus Villarreal on 09-09-2024 Bilirubin [Mass/Vol] 0.35 mg/dL 0.00-1.30 [facility] Carbon dioxide, total [Moles /volume] in Central venous bloodOrdered By: Jus Villarreal on 09-09-2024 CO2 [Moles/Vol] 23.0 mmol/L 21.0-32.0 [facility] Chloride assayOrdered By: Davy Villarreal on 09-09-2024 Chloride [Moles/Vol] 104 mmol/L 98-108 [facility] Comprehensive Metabolic Prof ilon 09-09-2024 Albumin [Mass/Vol] 4.2 g/dL Normal 3.4-4.8 [facility] Comment on above: Performed By: #### L 500.4050, L509.1000, L506.1000, L501.9520 #### [facility] [address] [place], [address] Albumin/Globulin [Mass ratio] 1.9 {ratio} Normal 0.9-2.4 [facility] Comment on above: Performed By: #### L 500.4050, L509.1000, L506.1000, L501.9520 #### [facility] [address] [place], [address] ALK PHOS 110 U/L High 35-104 [facility] Comment on above: Performed By: #### L 500.4050, L509.1000, L506.1000, L501.9520 #### [facility] [address] [place], [address] ALT [Catalytic activity/Vol] 34 U/L Normal <=34 [facility] Comment on above: Performed By: #### L 500.4050, L509.1000, L506.1000, L501.9520 #### [facility] [address] [place], [address] AST [Catalytic activity/Vol] 19 U/L Normal <=31 [facility] Comment on above: Performed By: #### L 500.4050, L509.1000, L506.1000, L501.9520 #### [facility] [address] [place], [address] Bilirubin [Mass/Vol] 0.35 mg/dL Normal 0.00-1.30 [facility] Comment on above: Performed By: #### L 500.4050, L509.1000, L506.1000, L501.9520 #### [facility] [address] [place], [address] BUN/CRE 13.8 RATIO Normal 10-20 [facility] Comment on above: Performed By: #### L 500.4050, L509.1000, L506.1000, L501.9520 #### [facility] [address] [place], [address] Calcium [Mass/Vol] 9.1 mg/dL Normal 7.6-11.0 [facility] Comment on above: Performed By: #### L 500.4050, L509.1000, L506.1000, L501.9520 #### [facility] [address] [place], [address] Chloride [Moles/Vol] 104 mmol/L Normal 98-108 [facility] Comment on above: Performed By: #### L 500.4050, L509.1000, L506.1000, L501.9520 #### [facility] [address] [place], [address] CO2 [Moles/Vol] 23.0 mmol/L Normal 21.0-32.0 [facility] Comment on above: Performed By: #### L 500.4050, L509.1000, L506.1000, L501.9520 #### [facility] [address] [place], [address] Creatinine [Mass/Vol] 1.01 mg/dL Normal 0.70-1.20 [facility] Comment on above: Performed By: #### L 500.4050, L509.1000, L506.1000, L501.9520 #### [facility] [address] [place], [address] GAP 12 Normal 5-15 [facility] Comment on above: Performed By: #### L 500.4050, L509.1000, L506.1000, L501.9520 #### [facility] [address] [place], [address] GFR/1.73 sq M.predicted among non-blacks MDRD (S/P/Bld) [Vol rate/Area] 64 mL/min/{1.73_m2} Normal >60 [facility] Comment on above: Result Comment: mL/m in/1.73m2 CKD-EPI Creatinine Equation (2020) Performed By: #### L 500.4050, L509.1000, L506.1000, L501.9520 #### [facility] [address] [place], [address] Globulin (S) [Mass/Vol] 2.2 g/dL Normal 2.2-4.2 [facility] Comment on above: Performed By: #### L 500.4050, L509.1000, L506.1000, L501.9520 #### [facility] [address] [place], [address] Glucose [Mass/Vol] 124 mg/dL High 70-99 [facility] Comment on above: Performed By: #### L 500.4050, L509.1000, L506.1000, L501.9520 #### [facility] [address] [place], [address] Potassium [Moles/Vol] 4.3 mmol/L Normal 3.3-5.1 [facility] Comment on above: Performed By: #### L 500.4050, L509.1000, L506.1000, L501.9520 #### [facility] [address] [place], [address] Sodium [Moles/Vol] 140 mmol/L Normal 133-145 [facility] Comment on above: Performed By: #### L 500.4050, L509.1000, L506.1000, L501.9520 #### [facility] [address] [place], [address] T PROT 6.4 g/dL Normal 5.9-8.4 [facility] Comment on above: Performed By: #### L 500.4050, L509.1000, L506.1000, L501.9520 #### [facility] [address] [place], [address] Urea nitrogen [Mass/Vol] 14 mg/dL Normal 4-19 [facility] Comment on above: Performed By: #### L 500.4050, L509.1000, L506.1000, L501.9520 #### [facility] [address] [place], [address] GFR/1.73 sq M.predicted dimitri g non-blacks MDRD (S/P/Bld) [Vol rate/Area]Ordered By: Jus Villarreal on 09-09-2024 Estimated GFR (MDRD) Non-Af Amer 64 >60 [facility] Comment on above: mL/min/1.73m2 CKD-EP I Creatinine Equation (2020) Glomerular filtration rate ( GFR) estimation/1.73 sq m using serum, plasma, or whole bOrdered By: Jus Villarreal on 09-09-2024 GFR/1.73 sq M.predicted among non-blacks MDRD (S/P/Bld) [Vol rate/Area] 64 mL/min/{1.73_m2} >60 [facility] Comment on above: mL/min/1.73m2 CKD-EP I Creatinine Equation (2020) Laboratory - Chemistry and C hemistry - challengeOrdered By: Jus Villarreal on 09-09-2024 AST [Catalytic activity/Vol] 19 U/L <32 [facility] PTH intactOrdered By: Jus Villarreal on 09-09-2024 Parathyroid Hormone (Intact) 55 pg/mL [facility] PTHINon 09-09-2024 PTH 55 pg/mL Normal [facility] Comment on above: Performed By: #### L 500.4050, L509.1000, L506.1000, L501.9520 #### [facility] [address] [place], [address] Potassium (Unsp spec) [Mass/ Vol]Ordered By: Jus Villarreal on 09-09-2024 Potassium [Moles/Vol] 4.3 mmol/L 3.3-5.1 [facility] Potassium measurement (mass/ volume)Ordered By: Jus Villarreal on 09-09-2024 Potassium (Unsp spec) [Mass/Vol] 4.3 mmol/L 3.3-5.1 [facility] Serum creatinine measurement (mass/volume)Ordered By: Jus Villarreal on 09-09-2024 Creatinine [Mass/Vol] 1.01 mg/dL 0.70-1.20 [facility] Serum globulin measurementOr dered By: Jus Villarreal on 09-09-2024 Globulin (S) [Mass/Vol] 2.2 g/dL 2.2-4.2 [facility] Serum glucose measurement (m ass/volume)Ordered By: Jus Villarreal on 09-09-2024 Glucose [Mass/Vol] 124 mg/dL High 70-99 [facility] Serum or plasma alanine garcia otransferase (ALT) measurementOrdered By: Jus Villarreal on 09-09-2024 ALT [Catalytic activity/Vol] 34 U/L <35 [facility] Serum or plasma albumin misty urement (mass/volume)Ordered By: Jus Villarreal on 09-09-2024 Albumin [Mass/Vol] 4.2 g/dL 3.4-4.8 [facility] Serum or plasma albumin/glob ulin mass ratioOrdered By: Jus Villarreal on 09-09-2024 Albumin/Globulin [Mass ratio] 1.9 {ratio} 0.9-2.4 [facility] Serum or plasma alkaline milton sphatase measurementOrdered By: Jus Villarreal on 09-09-2024 ALP [Catalytic activity/Vol] 110 U/L High 35-104 [facility] Serum or plasma calcium misty urement (mass/volume)Ordered By: Jus Villarreal on 09-09-2024 Calcium [Mass/Vol] 9.1 mg/dL 7.6-11.0 [facility] Serum or plasma urea nitroge n measurement (mass/volume)Ordered By: Jus Villarreal on 09-09-2024 Urea nitrogen [Mass/Vol] 14 mg/dL 4-19 [facility] Sodium levelOrdered By: Rossy Villarreal on 09-09-2024 Sodium [Moles/Vol] 140 mmol/L 133-145 [facility] TSH DL <= 0.005 mIU/L QnOrde red By: Jus Villarreal on 09-09-2024 Thyroid Stimulating Hormone (TSH) 2.350 uIU/mL 0.300-4.200 [facility] TSH Qn 2.350 uIU/mL 0.300-4.200 [facility] Thyroid Stim Hormone (TSH)on 09-09-2024 TSH 2.350 uIU/mL Normal 0.300-4.200 [facility] Comment on above: Performed By: #### L 500.4050, L509.1000, L506.1000, L501.9520 #### [facility] [address] [place], [address] Total proteinOrdered By: Jose in [facility] on 09-09-2024 Protein [Mass/Vol] 6.4 g/dL 5.9-8.4 [facility] ALK Phos Isoenzymeon 024 ALK PHOS, S 117 IU/L Normal 44-121 [facility] Comment on above: Performed By: #### L 3250.0100 #### [facility] [address] [place], [address] BONE FRACTION 41 Normal 14-68 [facility] Comment on above: Performed By: #### L 3250.0100 #### [facility] [address] [place], [address] INTESTINAL FRAC 13 Normal 0-18 [facility] Comment on above: Result Comment: Perf ormed at: - [facility] [address] [id number] Sexer: Zak Casey PhD, Phone: [phone] Performed By: #### L 3250.0100 #### [facility] [address] [place], [address] LIVER FRACTION 47 Normal 18-85 [facility] Comment on above: Performed By: #### L 3250.0100 #### [facility] [address] [place], [address] Comprehensive Metabolic Prof ilon 03-18-2024 Albumin [Mass/Vol] 3.8 g/dL Normal 3.2-5.0 [facility] Comment on above: Performed By: #### L 500.4050, L509.1000, L506.1000, L501.9520 #### [facility] [address] [place], [address] Albumin/Globulin [Mass ratio] 1.2 {ratio} Normal 0.9-2.4 [facility] Comment on above: Performed By: #### L 500.4050, L509.1000, L506.1000, L501.9520 #### [facility] [address] [place], [address] ALK P 121 U/L High 45-117 [facility] Comment on above: Performed By: #### L 500.4050, L509.1000, L506.1000, L501.9520 #### [facility] [address] [place], [address] ALT [Catalytic activity/Vol] 47 U/L Normal 13-56 [facility] Comment on above: Performed By: #### L 500.4050, L509.1000, L506.1000, L501.9520 #### [facility] [address] [place], [address] AST [Catalytic activity/Vol] 26 U/L Normal 15-37 [facility] Comment on above: Performed By: #### L 500.4050, L509.1000, L506.1000, L501.9520 #### [facility] [address] [place], [address] Bilirubin [Mass/Vol] 0.80 mg/dL Normal 0.20-1.00 [facility] Comment on above: Result Comment: For patients on eltrombopag therapy, use of Dimension [place] TBIL is not recommended. Performed By: #### L 500.4050, L509.1000, L506.1000, L501.9520 #### [facility] [address] [place], [address] BUN/CRE 17.4 RATIO Normal 10-20 [facility] Comment on above: Performed By: #### L 500.4050, L509.1000, L506.1000, L501.9520 #### [facility] [address] [place], [address] CA,Total 9.2 mg/dL Normal 8.5-10.1 [facility] Comment on above: Performed By: #### L 500.4050, L509.1000, L506.1000, L501.9520 #### [facility] [address] [place], [address] Chloride [Moles/Vol] 105 mmol/L Normal 98-107 [facility] Comment on above: Performed By: #### L 500.4050, L509.1000, L506.1000, L501.9520 #### [facility] [address] [place], [address] CO2 [Moles/Vol] 26.0 mmol/L Normal 21.0-32.0 [facility] Comment on above: Performed By: #### L 500.4050, L509.1000, L506.1000, L501.9520 #### [facility] [address] [place], [address] Creatinine [Mass/Vol] 0.86 mg/dL Normal 0.55-1.02 [facility] Comment on above: Result Comment: The validity of the calculated GFR GFRAA in patients over 70 years has not been determined. Clinical correlation is essential. Performed By: #### L 500.4050, L509.1000, L506.1000, L501.9520 #### [facility] [address] [place], [address] EST GFR - AA 86 mL/min Normal >60 [facility] Comment on above: Result Comment: Afri can Afghan GFR Calc Performed By: #### L 500.4050, L509.1000, L506.1000, L501.9520 #### [facility] [address] [place], [address] GAP 7 Normal 5-15 [facility] Comment on above: Performed By: #### L 500.4050, L509.1000, L506.1000, L501.9520 #### [facility] [address] [place], [address] GFR/1.73 sq M.predicted among non-blacks MDRD (S/P/Bld) [Vol rate/Area] 71 mL/min/{1.73_m2} Normal >60 [facility] Comment on above: Result Comment: Non- GFR Calc Performed By: #### L 500.4050, L509.1000, L506.1000, L501.9520 #### [facility] [address] [place], [address] Globulin (S) [Mass/Vol] 3.2 g/dL Normal 2.2-4.2 [facility] Comment on above: Performed By: #### L 500.4050, L509.1000, L506.1000, L501.9520 #### [facility] [address] [place], [address] Glucose [Mass/Vol] 125 mg/dL High 74-106 [facility] Comment on above: Result Comment: Fast ing Glucose result from 100 to 125 mg/dL suggests IMPAIRED HOMEOSTASIS per A.D.A. criteria. Performed By: #### L 500.4050, L509.1000, L506.1000, L501.9520 #### [facility] [address] [place], [address] Potassium [Moles/Vol] 4.2 mmol/L Normal 3.5-5.1 [facility] Comment on above: Performed By: #### L 500.4050, L509.1000, L506.1000, L501.9520 #### [facility] [address] [place], [address] Sodium [Moles/Vol] 138 mmol/L Normal 136-145 [facility] Comment on above: Performed By: #### L 500.4050, L509.1000, L506.1000, L501.9520 #### [facility] [address] [place], [address] T PROT 7.0 g/dL Normal 6.4-8.2 [facility] Comment on above: Performed By: #### L 500.4050, L509.1000, L506.1000, L501.9520 #### [facility] [address] [place], [address] Urea nitrogen [Mass/Vol] 15 mg/dL Normal 7-18 [facility] Comment on above: Performed By: #### L 500.4050, L509.1000, L506.1000, L501.9520 #### [facility] Laboratory [address] [place], [address] PTHINon 03-18-2024 PTH 76.3 pg/mL Normal 18.4-80.1 [facility] Comment on above: Performed By: #### L 500.4050, L509.1000, L506.1000, L501.9520 #### [facility] [address] [place], [address] Thyroid Stim Hormone (TSH)on 03-18-2024 TSH 1.000 uIU/mL Normal 0.358-3.740 [facility] Comment on above: Performed By: #### L 500.4050, L509.1000, L506.1000, L501.9520 #### [facility] [address] [place], [address] Vitamin D,25 Hydroxyon 03-18 Vitamin D 25-OH 56.0 ng/mL Normal [facility] Comment on above: Result Comment: Luanne min D 25(OH) Status Range Deficiency <20 ng/mL (50nmol/L) Insufficiency 20 - 30 ng/mL (50 - 75 nmol/L) Sufficiency 30 - 100 ng/mL (75 - 250 nmol/L) Toxicity >100 ng/mL (>250 nmol/L) Performed By: #### L 500.4050, L509.1000, L506.1000, L501.9520 #### [facility] [address] [place], [address] Comprehensive Metabolic Prof [facility] 11-20-2023 Albumin [Mass/Vol] 3.6 g/dL Normal 3.2-5.0 [facility] Comment on above: Performed By: #### L 501.5200, L506.1000, [id number], L500.4050, L509.1000 #### [facility] [address] [place], [address] Albumin/Globulin [Mass ratio] 1.2 {ratio} Normal 0.9-2.4 [facility] Comment on above: Performed By: #### L 501.5200, L506.1000, [id number], L500.4050, L509.1000 #### [facility] [address] [place], [address] ALK P 105 U/L Normal 45-117 [facility] Comment on above: Performed By: #### L 501.5200, L506.1000, [id number], L500.4050, L509.1000 #### [facility] [address] [place], [address] ALT [Catalytic activity/Vol] 32 U/L Normal 13-56 [facility] Comment on above: Performed By: #### L 501.5200, L506.1000, [id number], L500.4050, L509.1000 #### [facility] [address] [place], [address] AST [Catalytic activity/Vol] 23 U/L Normal 15-37 [facility] Comment on above: Performed By: #### L 501.5200, L506.1000, [id number], L500.4050, L509.1000 #### [facility] [address] [place], [address] Bilirubin [Mass/Vol] 0.60 mg/dL Normal 0.20-1.00 [facility] Comment on above: Result Comment: For patients on eltrombopag therapy, use of Dimension [place] TBIL is not recommended. Performed By: #### L 501.5200, L506.1000, [id number], L500.4050, L509.1000 #### [facility] [address] [place], [address] BUN/CRE 14.1 RATIO Normal 10-20 [facility] Comment on above: Performed By: #### L 501.5200, L506.1000, [id number], L500.4050, L509.1000 #### [facility] [address] [place], [address] CA,Total 8.7 mg/dL Normal 8.5-10.1 [facility] Comment on above: Performed By: #### L 501.5200, L506.1000, [id number], L500.4050, L509.1000 #### [facility] [address] [place], [address] Chloride [Moles/Vol] 105 mmol/L Normal 98-107 [facility] Comment on above: Performed By: #### L 501.5200, L506.1000, [id number], L500.4050, L509.1000 #### [facility] [address] [place], [address] CO2 [Moles/Vol] 27.0 mmol/L Normal 21.0-32.0 [facility] Comment on above: Performed By: #### L 501.5200, L506.1000, [id number], L500.4050, L509.1000 #### [facility] [address] [place], [address] Creatinine [Mass/Vol] 0.99 mg/dL Normal 0.55-1.02 [facility] Comment on above: Result Comment: The validity of the calculated GFR GFRAA in patients over 70 years has not been determined. Clinical correlation is essential. Performed By: #### L 501.5200, L506.1000, L501.9520, L500.4050, L509.1000 #### [facility] [address] [place], [address] EST GFR - AA 74 mL/min Normal >60 [facility] Comment on above: Result Comment: Afri can Afghan GFR Calc Performed By: #### L 501.5200, L506.1000, [id number], L500.4050, L509.1000 #### [facility] [address] [place], [address] GAP 4 Low 5-15 [facility] Comment on above: Performed By: #### L 501.5200, L506.1000, [id number], L500.4050, L509.1000 #### [facility] [address] [place], [address] GFR/1.73 sq M.predicted among non-blacks MDRD (S/P/Bld) [Vol rate/Area] 61 mL/min/{1.73_m2} Normal >60 [facility] Comment on above: Result Comment: Non- GFR Calc Performed By: #### L 501.5200, L506.1000, L501.9520, L500.4050, L509.1000 #### [facility] [address] [place], [address] Globulin (S) [Mass/Vol] 3.1 g/dL Normal 2.2-4.2 [facility] Comment on above: Performed By: #### L 501.5200, L506.1000, [id number], L500.4050, L509.1000 #### [facility] [address] [place], [address] Glucose [Mass/Vol] 126 mg/dL High 74-106 [facility] Comment on above: Result Comment: Fast ing Glucose result greater than or equal to 126 mg/dL suggests DIABETES MELLITUS per A.D.A. criteria. Performed By: #### L 501.5200, L506.1000, L501.9520, L500.4050, L509.1000 #### [facility] [address] [place], [address] Potassium [Moles/Vol] 4.0 mmol/L Normal 3.5-5.1 [facility] Comment on above: Performed By: #### L 501.5200, L506.1000, L501.9520, L500.4050, L509.1000 #### [facility] [address] [place], [address] Sodium [Moles/Vol] 136 mmol/L Normal 136-145 [facility] Comment on above: Performed By: #### L 501.5200, L506.1000, [id number], L500.4050, L509.1000 #### [facility] [address] [place], [address] T PROT 6.7 g/dL Normal 6.4-8.2 [facility] Comment on above: Performed By: #### L 501.5200, L506.1000, L501.9520, L500.4050, L509.1000 #### [facility] [address] [place], [address] Urea nitrogen [Mass/Vol] 14 mg/dL Normal 7-18 [facility] Comment on above: Performed By: #### L 501.5200, L506.1000, L501.9520, L500.4050, L509.1000 #### [facility] [address] [place], [address] Magnesiumon 11-20-2023 Magnesium [Mass/Vol] 2.2 mg/dL Normal 1.6-2.6 [facility] Comment on above: Performed By: #### L 501.5200, L506.1000, L501.9520, L500.4050, L509.1000 #### [facility] [address] [place], [address] PTHINon 11-20-2023 PTH 76.5 pg/mL Normal 18.4-80.1 [facility] Comment on above: Performed By: #### L 501.5200, L506.1000, L501.9520, L500.4050, L509.1000 #### [facility] [address] [place], [address] Thyroid Stim Hormone (TSH)on 11-20-2023 TSH 1.75 uIU/mL Normal 0.358-3.74 [facility] Comment on above: Performed By: #### L 501.5200, L506.1000, L501.9520, L500.4050, L509.1000 #### [facility] [address] [place], [address] Vitamin D,25 Hydroxyon 11-19 Vitamin D 25-OH 39.6 ng/mL Normal [facility] Comment on above: Result Comment: Luanne min D 25(OH) Status Range Deficiency <20 ng/mL (50nmol/L) Insufficiency 20 - 30 ng/mL (50 - 75 nmol/L) Sufficiency 30 - 100 ng/mL (75 - 250 nmol/L) Toxicity >100 ng/mL (>250 nmol/L) Performed By: #### L 501.5200, L506.1000, L501.9520, L500.4050, L509.1000 #### [facility] [address] [place], [address] Basophil percentageOrdered B y: Go Gonzalez on 10-04-2023 Chloride [Moles/Vol] 106 mmol/L 98-107 [facility] Cholesterol [Mass/Vol] 190 mg/dL <200 [facility] Comment on above: <200 mg/dL Desirable 200-240 mg/dL Borderline >240 mg/dL High Risk Glucose [Mass/Vol] 94 mg/dL 74-106 [facility] Potassium [Moles/Vol] 4.2 mmol/L 3.5-5.1 [facility] Sodium [Moles/Vol] 140 mmol/L 136-145 [facility] Triglyceride [Mass/Vol] 108 mg/dL <199 [facility] Comment on above: The drugs N-Acetylcy steine and Metamizole may falsely depress this assay.Serum Triglycerides Reference Interval Normal <150 mg/dL Borderline high 150 - 199 mg/dL High 200 - 499 mg/dL Very High > or = 500 mg/dL Laboratory - Chemistry and C hemistry - challengeOrdered By: Go Gonzalez on 10-04-2023 Cholesterol in HDL [Mass/Vol] 47 mg/dL >40 [facility] Comment on above: The drugs N-Acetylcy steine and Metamizole may falsely depress this assay. Reference Range HDL <40 mg/dL Low HDL Cholesterol HDL >or= 60 mg/dL High HDL Cholesterol Cholesterol in LDL [Mass/Vol] 121 mg/dL 0-130 [facility] CO2 [Moles/Vol] 27.0 mmol/L 21.0-32.0 [facility] Urea nitrogen/Creatinine [Mass ratio] 15.2 mg/mg 10-20 [facility] No Panel InformationOrdered By: Go Gonzalez on 10-04-2023 Estimated GFR (MDRD) Amer 69 mL/min >60 [facility] Comment on above: GFR Calc Estimated GFR (MDRD) Non-Af Amer 57 mL/min >60 [facility] Comment on above: Non- GFR Calc VLDL Cholesterol 22 mg/dL 5-40 [facility] Serum or plasma calcium misty urement (mass/volume)Ordered By: Go Gonzalez on 10-04-2023 Calcium [Mass/Vol] 9.1 mg/dL 8.5-10.1 [facility] Serum or plasma creatinine m easurement (mass/volume)Ordered By: Go Gonzalez on 10-04-2023 Creatinine [Mass/Vol] 1.05 mg/dL 0.55-1.02 [facility] Comment on above: The validity of the calculated GFR & GFRAA in patients over 70 years has not been determined. Clinical correlation is essential. Serum or plasma thyroid stim ulating hormone (TSH) measurement (units/volume)Ordered By: Go Gonzalez on 10-04-2023 TSH Qn 1.01 uIU/mL 0.358-3.74 [facility] Serum or plasma urea nitroge n measurement (mass/volume)Ordered By: Go Gonzalez on 10-04-2023 Urea nitrogen [Mass/Vol] 16 mg/dL 7-18 [facility] Thin prep Papanicolaou smear with manual screeningOrdered By: Go Gonzalez on 10-04-2023 Thin prep Papanicolaou smear with manual screening 7 5-15 [facility] Basophil percentageOrdered B y: Jus Villarreal on 08-04-2023 Bilirubin [Mass/Vol] 0.50 mg/dL 0.20-1.00 [facility] Comment on above: For patients on eltr ombopag therapy, use of Dimension [place] TBIL is not recommended. Chloride [Moles/Vol] 106 mmol/L 98-107 [facility] Glucose [Mass/Vol] 124 mg/dL 74-106 [facility] Comment on above: Fasting Glucose resu lt from 100 to 125 mg/dL suggests IMPAIRED HOMEOSTASIS per A.D.A. criteria. Potassium [Moles/Vol] 4.2 mmol/L 3.5-5.1 [facility] Protein [Mass/Vol] 7.1 g/dL 6.4-8.2 [facility] Sodium [Moles/Vol] 140 mmol/L 136-145 [facility] Laboratory - Chemistry and C hemistry - challengeOrdered By: Jus Villarreal on 08-04-2023 Albumin/Globulin [Mass ratio] 1.2 {ratio} 0.9-2.4 [facility] ALP [Catalytic activity/Vol] 127 U/L 45-117 [facility] ALT [Catalytic activity/Vol] 44 U/L 13-56 [facility] CO2 [Moles/Vol] 30.0 mmol/L 21.0-32.0 [facility] Globulin (S) [Mass/Vol] 3.3 g/dL 2.2-4.2 [facility] Magnesium [Mass/Vol] 2.3 mg/dL 1.6-2.6 [facility] Urea nitrogen/Creatinine [Mass ratio] 20.4 mg/mg 10-20 [facility] No Panel InformationOrdered By: Jus Villarreal on 08-04-2023 Estimated GFR (MDRD) Amer 71 mL/min >60 [facility] Comment on above: GFR Calc Estimated GFR (MDRD) Non-Af Amer 58 mL/min >60 [facility] Comment on above: Non- GFR Calc Serum or plasma calcium misty urement (mass/volume)Ordered By: Jus Villarreal on 08-04-2023 Calcium [Mass/Vol] 9.0 mg/dL 8.5-10.1 [facility] Serum or plasma creatinine m easurement (mass/volume)Ordered By: Jus Villarreal on 08-04-2023 Creatinine [Mass/Vol] 1.03 mg/dL 0.55-1.02 [facility] Comment on above: The validity of the calculated GFR & GFRAA in patients over 70 years has not been determined. Clinical correlation is essential. Serum or plasma thyroid stim ulating hormone (TSH) measurement (units/volume)Ordered By: Jus Villarreal on 08-04-2023 TSH Qn 1.64 uIU/mL 0.358-3.74 [facility] Serum or plasma urea nitroge n measurement (mass/volume)Ordered By: Jus Villarreal on 08-04-2023 Urea nitrogen [Mass/Vol] 21 mg/dL 7-18 [facility] Thin prep Papanicolaou smear with manual screeningOrdered By: Jus Villarreal on 08-04-2023 Thin prep Papanicolaou smear with manual screening 3.8 g/dL 3.2-5.0 [facility] Thin prep Papanicolaou smear with manual screening 16 U/L 15-37 [facility] Thin prep Papanicolaou smear with manual screening 4 5-15 [facility] 24 hour urine creatinine alice surement (mass/time)Ordered By: Jus Villarreal on 02-21-2023 Creatinine (24H U) [Mass/Time] 1.22 g/24 HR 0.70-1.90 [facility] 24 hour urine free cortisol measurement (mass/time)Ordered By: Jus Villarreal on 02-21-2023 Cortisol Free (24H U) [Mass/Time] 18 ug/24 hr 6-42 [facility] Comment on above: Performed at: - [address] [id number] Director: Loni Rubi MD, Phone: [phone] Laboratory - Specimen inform ationOrdered By: Jus Villarreal on 02-21-2023 Collection duration (U) 24.0 HOURS 24.0-24.0 [facility] Quantitative urine free luz isol measurement (mass/volume)Ordered By: Jus Villarreal on 02-21-2023 Cortisol Free (U) [Mass/Vol] 11 ug/L Undefined [facility] Urine creatinine measurement (mass/volume)Ordered By: Jus Villarreal on 02-21-2023 Creatinine (U) [Mass/Vol] 76.50 mg/dL NO RANGE EST. [facility] Urine volume measurementOrde red By: Jus Villarreal on 02-21-2023 Specimen volume (U) 1.60 L [facility] Serum or plasma cortisol alice surement (mass/volume)Ordered By: Malika Ty on 01-03-2023 Cortisol [Mass/Vol] 2.10 ug/dL 3.44-22.45 [facility] Comment on above: Adult (AM) 5.27 - 22 .45 ug/dL Adult (PM) 3.44 - 16.76 ug/dLPlease note revised CORTISOL reference range effective 2019. Basophil percentageOrdered B y: Jus Villarreal on 01-02-2023 Bilirubin [Mass/Vol] 0.60 mg/dL 0.20-1.00 [facility] Comment on above: For patients on eltr ombopag therapy, use of Dimension [place] TBIL is not recommended. Chloride [Moles/Vol] 107 mmol/L 98-107 [facility] Glucose [Mass/Vol] 113 mg/dL 74-106 [facility] Comment on above: Fasting Glucose resu lt from 100 to 125 mg/dL suggests IMPAIRED HOMEOSTASIS per A.D.A. criteria. Potassium [Moles/Vol] 3.9 mmol/L 3.5-5.1 [facility] Protein [Mass/Vol] 6.9 g/dL 6.4-8.2 [facility] Sodium [Moles/Vol] 140 mmol/L 136-145 [facility] Laboratory - Chemistry and C hemistry - challengeOrdered By: Jus Villarreal on 01-02-2023 ALP [Catalytic activity/Vol] 110 U/L 45-117 [facility] ALT [Catalytic activity/Vol] 33 U/L 13-56 [facility] CO2 [Moles/Vol] 29.0 mmol/L 21.0-32.0 [facility] Globulin (S) [Mass/Vol] 3.2 g/dL 2.2-4.2 [facility] Magnesium [Mass/Vol] 2.2 mg/dL 1.6-2.6 [facility] Urea nitrogen/Creatinine [Mass ratio] 15.3 mg/mg 10-20 [facility] No Panel InformationOrdered By: Jus Villarreal on 01-02-2023 Estimated GFR (MDRD) Amer 81 mL/min >60 [facility] Comment on above: GFR Calc Estimated GFR (MDRD) Non-Af Amer 67 mL/min >60 [facility] Comment on above: Non- GFR Calc Insulin Level 15.6 mU/L 2.6-37.6 [facility] Parathyroid Hormone (Intact) 56.1 pg/mL 18.4-80.1 [facility] Thyroid Stimulating Hormone (TSH) 3.14 uIU/mL 0.358-3.74 [facility] Vitamin D 25-Hydroxy 45.3 ng/mL [facility] Comment on above: Vitamin D 25(OH) Sta tus Range Deficiency <20 ng/mL (50nmol/L) Insufficiency 20 - 30 ng/mL (50 - 75 nmol/L) Sufficiency 30 - 100 ng/mL (75 - 250 nmol/L) Toxicity >100 ng/mL (>250 nmol/L) Serum or plasma albumin misty urement (mass/volume)Ordered By: Jus Villarreal on 01-02-2023 Albumin [Mass/Vol] 3.7 g/dL 3.2-5.0 [facility] Serum or plasma albumin/glob ulin mass ratioOrdered By: Juslexi Villarreal on 01-02-2023 Albumin/Globulin [Mass ratio] 1.2 {ratio} 0.9-2.4 [facility] Serum or plasma calcium misty urement (mass/volume)Ordered By: Juslexi Villarreal on 01-02-2023 Calcium [Mass/Vol] 8.8 mg/dL 8.5-10.1 [facility] Serum or plasma creatinine m easurement (mass/volume)Ordered By: Juslexi Villarreal on 01-02-2023 Creatinine [Mass/Vol] 0.92 mg/dL 0.55-1.02 [facility] Comment on above: The validity of the calculated GFR & GFRAA in patients over 70 years has not been determined. Clinical correlation is essential. Serum or plasma urea nitroge n measurement (mass/volume)Ordered By: Jus Villarreal on 01-02-2023 Urea nitrogen [Mass/Vol] 14 mg/dL 7-18 [facility] Thin prep Papanicolaou smear with manual screeningOrdered By: Juslexi Villarreal on 01-02-2023 Thin prep Papanicolaou smear with manual screening 16 U/L 15-37 [facility] Thin prep Papanicolaou smear with manual screening 4 5-15 [facility] Absolute lymphocyte countOrd ered By: Dr. Gonzalez on 07-13-2022 Lymphocytes Auto (Unsp spec) [#/Vol] 1.60 10*3/uL 0.83-4.51 [facility] Basophil percentageOrdered B y: Dr. Gonzalez on 07-13-2022 Basophils/100 WBC (Bld) 0.8 % 0-1 [facility] Chloride [Moles/Vol] 106 mmol/L 98-107 [facility] Cholesterol [Mass/Vol] 198 mg/dL <200 [facility] Comment on above: <200 mg/dL Desirable 200-240 mg/dL Borderline >240 mg/dL High Risk Eosinophils/100 WBC (Bld) 1.9 % 0-5 [facility] Glucose [Mass/Vol] 104 mg/dL 74-106 [facility] Comment on above: Fasting Glucose resu lt from 100 to 125 mg/dL suggests IMPAIRED HOMEOSTASIS per A.D.A. criteria. Neutrophils (Bld) [#/Vol] 3.9 10*3/uL 2.0-7.7 [facility] Neutrophils/100 WBC (Bld) 61.5 % 47-70 [facility] Potassium [Moles/Vol] 4.6 mmol/L 3.5-5.1 [facility] Sodium [Moles/Vol] 141 mmol/L 136-145 [facility] Triglyceride [Mass/Vol] 111 mg/dL <199 [facility] Comment on above: The drugs N-Acetylcy steine and Metamizole may falsely depress this assay.Serum Triglycerides Reference Interval Normal <150 mg/dL Borderline high 150 - 199 mg/dL High 200 - 499 mg/dL Very High > or = 500 mg/dL WBC (Bld) [#/Vol] 6.4 10*3/uL 4.4-11.0 [facility] Blood erythrocytes count (nu mber/volume)Ordered By: Dr. Gonzalez on 07-13-2022 RBC (Bld) [#/Vol] 4.58 10*6/uL 4.2-5.4 [facility] Blood hemoglobin measurement (mass/volume)Ordered By: Dr. Gonzalez on 07-13-2022 Hemoglobin (Bld) [Mass/Vol] 14.5 g/dL 12.0-15.0 [facility] Blood lymphocytes/100 leukoc ytesOrdered By: Dr. Gonzalez on 07-13-2022 Lymphocytes/100 WBC (Bld) 25.2 % 19-41 [facility] Blood monocytes/100 leukocyt esOrdered By: Dr. Gonzalez on 07-13-2022 Monocytes/100 WBC (Bld) 10.1 % 0-10 [facility] Blood platelet mean volumeOr dered By: Dr. Gonzalez on 07-13-2022 Platelet mean volume (Bld) [Entitic vol] 11.8 fL 6.2-12.0 [facility] Determination of erythrocyte mean corpuscular volume (MCV)Ordered By: Dr. Gonzalez on 07-13-2022 MCV (RBC) [Entitic vol] 94.5 fL 81-99 [facility] Hematocrit Auto (Bld) [Volum e fraction]Ordered By: Dr. Gonzalez on 07-13-2022 Hematocrit (Bld) [Volume fraction] 43.3 % 37-47 [facility] Laboratory - Chemistry and C hemistry - challengeOrdered By: Dr. Gonzalez on 07-13-2022 CO2 [Moles/Vol] 29.0 mmol/L 21.0-32.0 [facility] Urea nitrogen/Creatinine [Mass ratio] 14.4 mg/mg 10-20 [facility] - Hematology and Cell countsOrdered By: Dr. Gonzalez on 07-13-2022 Erythrocyte distribution width (RBC) [Entitic vol] 42.6 fL 35.1-43.9 [facility] Erythrocyte distribution width (RBC) [Ratio] 12.3 % 11.6-14.6 [facility] Immature granulocytes/100 WBC (Bld) 0.500 % 0.0-0.9 [facility] Comment on above: IG% - Immature Granu locytes (promyelocytes, myelocytes and metamyelocytes) > 1% indicates that a LEFT SHIFT is Present. MCH (RBC) [Entitic mass] 31.7 pg 27.0-32.0 [facility] Nucleated RBC/100 WBC (Bld) [Ratio] 0 % 0-5 [facility] MCHC Auto (RBC) [Mass/Vol]Or dered By: Dr. Gonzalez on 07-13-2022 MCHC (RBC) [Mass/Vol] 33.5 g/dL 32-36 [facility] No Panel InformationOrdered By: Dr. Gonzalez on 07-13-2022 Estimated GFR (MDRD) Amer 76 mL/min >60 [facility] Comment on above: GFR Calc Estimated GFR (MDRD) Non-Af Amer 63 mL/min >60 [facility] Comment on above: Non- GFR Calc Thyroid Stimulating Hormone (TSH) 0.74 uIU/mL 0.358-3.74 [facility] Platelets bldOrdered By: Dr. Gonzalez on 07-13-2022 Platelets (Bld) [#/Vol] 230 10*3/uL 150-450 [facility] Serum or plasma calcium misty urement (mass/volume)Ordered By: Dr. Gonzalez on 07-13-2022 Calcium [Mass/Vol] 9.2 mg/dL 8.5-10.1 [facility] Serum or plasma cholesterol in HDL measurement (mass/volume)Ordered By: Dr. Gonzalez on 07-13-2022 Cholesterol in HDL [Mass/Vol] 53 mg/dL >40 [facility] Comment on above: The drugs N-Acetylcy steine and Metamizole may falsely depress this assay. Reference Range HDL <40 mg/dL Low HDL Cholesterol HDL >or= 60 mg/dL High HDL Cholesterol Serum or plasma cholesterol in VLDL measurement (mass/volume)Ordered By: Dr. Gonzalez on 07-13-2022 Cholesterol in VLDL [Mass/Vol] 22 mg/dL 5-40 [facility] Serum or plasma creatinine m easurement (mass/volume)Ordered By: Dr. Gonzalez on 07-13-2022 Creatinine [Mass/Vol] 0.97 mg/dL 0.55-1.02 [facility] Comment on above: The validity of the calculated GFR & GFRAA in patients over 70 years has not been determined. Clinical correlation is essential. Serum or plasma low density lipoprotein (LDL) cholesterol measurement (mass/volume)Ordered By: Dr. Gonzalez on 07-13-2022 Cholesterol in LDL [Mass/Vol] 123 mg/dL 0-130 [facility] Serum or plasma urea nitroge n measurement (mass/volume)Ordered By: Dr. Gonzalez on 07-13-2022 Urea nitrogen [Mass/Vol] 14 mg/dL 7-18 [facility] Thin prep Papanicolaou smear with manual screeningOrdered By: Dr. Gonzalez on 07-13-2022 Thin prep Papanicolaou smear with manual screening 6 5-15 [facility] Basophil percentageOrdered B y: Dr. Villarreal on 04-27-2022 Bilirubin [Mass/Vol] 0.60 mg/dL 0.20-1.00 [facility] Comment on above: For patients on eltr ombopag therapy, use of Dimension [place] TBIL is not recommended. Chloride [Moles/Vol] 102 mmol/L 98-107 [facility] Glucose [Mass/Vol] 112 mg/dL 74-106 [facility] Comment on above: Fasting Glucose resu lt from 100 to 125 mg/dL suggests IMPAIRED HOMEOSTASIS per A.D.A. criteria. Potassium [Moles/Vol] 3.7 mmol/L 3.5-5.1 [facility] Protein [Mass/Vol] 7.2 g/dL 6.4-8.2 [facility] Sodium [Moles/Vol] 137 mmol/L 136-145 [facility] Laboratory - Chemistry and C hemistry - challengeOrdered By: Dr. Villarreal on 04-27-2022 ALP [Catalytic activity/Vol] 100 U/L 45-117 [facility] ALT [Catalytic activity/Vol] 42 U/L 13-56 [facility] CO2 [Moles/Vol] 29.0 mmol/L 21.0-32.0 [facility] Globulin (S) [Mass/Vol] 3.3 g/dL 2.2-4.2 [facility] Urea nitrogen/Creatinine [Mass ratio] 14.1 mg/mg 10-20 [facility] No Panel InformationOrdered By: Dr. Villarreal on 04-27-2022 Estimated GFR (MDRD) Amer 89 mL/min >60 [facility] Comment on above: GFR Calc Estimated GFR (MDRD) Non-Af Amer 73 mL/min >60 [facility] Comment on above: Non- GFR Calc Thyroid Stimulating Hormone (TSH) 1.24 uIU/mL 0.358-3.74 [facility] Serum or plasma albumin misty urement (mass/volume)Ordered By: Dr. Villarreal on 04-27-2022 Albumin [Mass/Vol] 3.9 g/dL 3.2-5.0 [facility] Serum or plasma albumin/glob ulin mass ratioOrdered By: Dr. Villarreal on 04-27-2022 Albumin/Globulin [Mass ratio] 1.2 {ratio} 0.9-2.4 [facility] Serum or plasma calcium misty urement (mass/volume)Ordered By: Dr. Villarreal on 04-27-2022 Calcium [Mass/Vol] 8.5 mg/dL 8.5-10.1 [facility] Serum or plasma creatinine m easurement (mass/volume)Ordered By: Dr. Villarreal on 04-27-2022 Creatinine [Mass/Vol] 0.85 mg/dL 0.55-1.02 [facility] Comment on above: The validity of the calculated GFR & GFRAA in patients over 70 years has not been determined. Clinical correlation is essential. Serum or plasma urea nitroge n measurement (mass/volume)Ordered By: Dr. Villarreal on 04-27-2022 Urea nitrogen [Mass/Vol] 12 mg/dL 7-18 [facility] Thin prep Papanicolaou smear with manual screeningOrdered By: Dr. Villarreal on 04-27-2022 Thin prep Papanicolaou smear with manual screening 17 U/L 15-37 [facility] Thin prep Papanicolaou smear with manual screening 6 5-15 [facility] Emergency Room Note on 05-28-2017 [place] [facility] Note Normal [facility] ([place] Patient Summary Documentson 05-28-2017 Patient Summary Documents Normal [facility] [place] XR ANKLE MINIMUM 3 VIEWS RIG HTon [...] Interpreted By: Bessie ClemonsPreliminary Report By: Bessie ClemonsElectronically Signed By: Bessie Clemons Dictated Date: 05/28/2017 6:05:55 PM Prelim Date: 05/28/2017 6:05:55 PM Sign Date: 05/28/2017 6:06:55 PM Normal [facility] ([place] Vital Signs Date Time Vital Sign Value Performing Clinician Faci lity 10-06-2023 08:05-0400 Body temperature 98.4 [degF] Dr. Go Gonzalez Work Phone: [facility] 10-06-2023 08:05-0400 Diastolic blood pressure 76 mm[Hg] Dr. Go Gonzalez Work Phone: [facility] 10-06-2023 08:05-0400 Heart rate 61 /min Dr. Go Gonzalez Work Phone: [facility] 10-06-2023 08:05-0400 Respiratory rate 16 /min Dr. Go Gonzalez Work Phone: [facility] 10-06-2023 08:05-0400 SaO2% (BldA) [Mass fraction] 97 % Dr. Go Gonzalez Work Phone: [facility] 10-06-2023 08:05-0400 Systolic blood pressure 121 mm[Hg] Dr. Go Gonzalez Work Phone: 1(484)[phone] [address] 10-06-2023 06:36-0400 Body height 167.[address] Go Gonzalez Work Phone: 3(156)[phone] [address] 10-06-2023 06:36-0400 Body mass index (BMI) [Ratio] 30.2 kg/m2 Dr. Go Gonzalez Work Phone: [facility] 10-06-2023 06:36-0400 Body weight 85.[address] Go Gonzalez Work Phone: 5(196)[phone] [address] 07-21-2023 14:11-0500 Body height 167.[address] Go Gonzalez Work Phone: 3(771)441-943574 [place] [address] 07-21-2023 14:11-0500 Body mass index (BMI) [Ratio] 29.4 kg/m2 Dr. Go Gonzalez Work Phone: [facility] 07-21-2023 14:11-0500 Body temperature 98 [degF] Dr. Go Gonzalez Work Phone: 0(917)[phone] [place] [address] 07-21-2023 14:11-0500 Body weight 82.[address] Go Gonzalez Work Phone: [facility] 07-21-2023 14:11-0500 Diastolic blood pressure 80 mm[Hg] Dr. Go Gonzalez Work Phone: 5(171)[phone] [place] [address] 07-21-2023 14:11-0500 Heart rate 81 /min Dr. Go Gonzalez Work Phone: [facility] 07-21-2023 14:110500 Respiratory rate 18 /min Dr. Go Gonzalez Work Phone: [facility] 07-21-2023 14:11-0500 SaO2% (BldA) [Mass fraction] 98 % Dr. Go Gonzalez Work Phone: [facility] 07-21-2023 14:11-0500 Systolic blood pressure 128 mm[Hg] Dr. Go Gonzalez Work Phone: [facility] Encounters Encounter Date Encounter Type Care Provider Facility Start: 10-30-2024 End: 10-30-[address] Go Gonzalez MD Work Phone: [facility] Work Phone: Start: 10-30-2024 End: 10-30-[address] Go Gonzalez MD -Outpatient Breast Imaging Work Phone: Start: 10-30-2024 End: 10-30-2024 ambulatory Go Gonzalez Facility:[facility] Start: 09-09-2024 End: 09-09-[address] Go Gonzalez MD Work Phone: [facility] Work Phone: Start: 09-09-2024 End: 09-09-[address] Jus Villarreal DO -Laboratory Work Phone: Start: 09-09-2024 End: 09-09-2024 ambulatory Jus Villarreal Facility:[facility] Start: 03-29-2024 End: 03-29-2024 ambulatory Go Gonzalez Facility:[facility] Start: 03-18-2024 End: 03-18-2024 ambulatory Go Gonzalez Facility:[facility] Start: 11-20-2023 End: 11-20-2023 ambulatory Jus Villarreal Facility:[facility] Start: 10-06-2023 Non-patient / Non-visit Dr. John Gonzalez Work Phone: [facility] Start: 10-06-2023 End: 10-06-2023 Admission to same day surgery center Dr. Go Gonzalez Work Phone: [facility]-Endoscopy Work Phone: Start: 10-06-2023 End: 10-06-[address] Go Gonzalez Work Phone: [facility] Work Phone: Start: 10-04-2023 End: 10-04-[address] Go Gonzalez Work Phone: [facility] Work Phone: Start: 10-04-2023 End: 10-04-[address] Go Gonzalez [facility] Start: 08-04-2023 End: 08-04-[address] Go Gonzalez Work Phone: [facility] Work Phone: Start: 08-04-2023 End: 08-04-[address] [facility] Start: 07-21-2023 End: 07-21-[address] Go Gonzalez Work Phone: [facility] Work Phone: Start: 07-12-2023 End: 07-12-2023 ambulatory [facility] Work Phone: Start: 07-12-2023 End: 07-12-2023 Patient encounter procedure [facility]-Outpatient Breast Imaging Work Phone: Start: 02-21-2023 End: 02-21-2023 ambulatory [facility] Work Phone: Start: 02-21-2023 End: 02-21-2023 Patient encounter procedure [facility] Spec[facility] Work Phone: Start: 01-03-2023 End: 01-03-2023 ambulatory [facility] Work Phone: Start: 01-03-2023 End: 01-03-2023 Patient encounter procedure [facility]-Laboratory Work Phone: Start: 01-02-2023 End: 01-02-2023 ambulatory [facility] Work Phone: Start: 01-02-2023 End: 01-02-2023 Patient encounter procedure [facility]Laboratory Work Phone: Start: 07-25-2022 Non-patient / Non-visit Dr. John Gonzalez Work Phone: [facility] Start: 07-25-2022 End: 07-25-[address] Go Gonzalez Work Phone: [facility] Work Phone: Start: 07-25-2022 End: 07-25-[address] Go Gonzalez Work Phone: [facility]-Cardiovascular Services Start: 07-13-2022 End: 07-13-2022 ambulatory [facility] Work Phone: Start: 07-13-2022 End: 07-13-2022 Patient encounter procedure [facility]-Laboratory, [place] Start: 06-02-2022 End: 06-02-2022 ambulatory [facility] Work Phone: Start: 06-02-2022 End: 06-02-2022 Patient encounter procedure [facility]-Outpatient Breast Imaging Start: 04-27-2022 End: 04-27-2022 ambulatory [facility] Work Phone: Start: 04-27-2022 End: 04-27-2022 Patient encounter procedure [facility]-Laboratory Start: 05-28-2017 End: 05-28-2017 Emergency department patient visit DOMINIQUE MADERA Facility:B Procedures Date Procedure Procedure Detail Performing Clinician Start: 10-30-[address] Go Padilla Work Phone: Start: 09-09-[address] Go Gonzalez MD Work Phone: Start: 10-06-[address] Go vargas Work Phone: Start: 10-04-20[address] examination [address] knee [address] Go Gonzalez Work Phone: Start: 07-12-2023 Screening mammography Start: 07-25-2022 Radionuclide imaging of perfusion of myocardium under exercise stress Dr. Go Gonzalez Work Phone: Start: 07-13-2022 X-ray of both feet Start: 06-02-2022 Screening mammography Plan of Treatment Date Care Activity Detail Author Start: 10-06-2023 Patient discharge [facility] Patient referral [facility] Work Phone: [facility] Immunizations Immunization Date Immunization Notes Care Provider Magali alberto 05-17-2015 tetanus toxoid, redu shaka diphtheria toxoid, and acellular pertussis vaccine, adsorbed [facility] Payers Date Payer Category Payer Private Health Insurance [id number] 2023 Self-pay [id number] 2017 Unknown [id number] Private Health Insurance [employer] [id number] Private Health Insurance [employer] [id number] Unknown [id number] [id number] Unknown [id number] [id number] Unknown [id number] [id number] Unknown [id number] [id number] Unknown [id number] [id number] Social History Date Type Detail Facility Start: 07-28-2020 End: 10-05-2023 Tobacco smoking status NHIS Unknown if ever smoked [facility] Start: 1965 Sex Assigned At Female [facility] Start: 10-05-2023 Tobacco smoking status NHIS Never smoked tobacco (finding) [facility] Start: 09-12-2024 Sex Female (finding) [facility] NEGATED: Highlighted row [facility] Goals Date Patient Goal Desired Activity /State Mental Status Date Assessment Result Facility 10-06-2023 Cognitive function Light [facility] Work Phone: History and physical note 10-06-2023 Note Date & Type Note Facility 10-06-2023 History and physical note Note Date/Time October 06, 2023 6:22am [facility] Medical Records Department [address] [place] [address] History & Physical Exam 10/06/23 0622 MR#: [id number] Acct: [id number] Name: MAHAD GARCIA Rep #:[id number] : 1965 58 From: Kristian Jj MD PCP: Dr. 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 Required: No Is patient in pain?: No Allergies bee venom protein (honey bee) Allergy (Mild, Verified 07/21/23 14:12) hivesascorbic acid Allergy (Verified 07/21/23 14:12) Hives Medications cetirizine 10 mg capsule (Zyrtec) 10 mg PO DAILY PRN Allergies 07/23/20 [History Confirmed 07/21/23] cholecalciferol (vitamin D3) 25 mcg (1,000 unit) capsule 25 mcg PO BID 07/23/20 [History Confirmed 07/21/23] levothyroxine 88 mcg tablet 88 mcg PO DAILY 07/23/20 [History Confirmed 07/21/23] mecobalamin (vitamin B12) 5,000 mcg disintegrating tablet 5,000 mcg PO DAILY 07/23/20 [History Confirmed 07/21/23] ondansetron HCl 4 mg tablet 4 mg PO BID PRN Nausea 07/23/20 [History Confirmed 07/21/23] spironolactone 100 mg tablet 100 mg PO DAILY 07/23/20 [History Confirmed 07/21/23] spironolactone 50 mg-hydrochlorothiazide 50 mg tablet (Aldactazide) 1 tab PO DAILY 07/23/20 [History Confirmed 07/21/23] omeprazole 20 mg capsule,delayed release 20 mg PO BID 07/28/20 [History Confirmed 07/21/23] famotidine 20 mg tablet (Pepcid) 20 mg PO BID #90 tabs 08/03/20 [Rx Confirmed 07/21/23] PFSH Medical History Abdominal pain GERD (gastroesophageal reflux disease) Hypothyroidism Insomnia Peripheral edema Seasonal allergic reaction Thyroid nodule Surgical History History of breast lump removal History of partial hysterectomy History of wisdom tooth extraction Hx of local excision of skin lesion Status post fine needle biopsy Family History Father Cancer prostate CVA (cerebral vascular accident)Brother Heart disease Kidney diseaseSister Gastric ulcer SclerodermaMother Thyroid disorder Hypertension Social History Smoking Status: Never smoker HPI HPI HPI: 58-year-old female. I have assisted her most recently July 28, 2020 with anesophagogastroduodenoscopy. Reflux esophagitis was identified. Multiple gastric polyps. She was having epigastric pain at that time. Pathology suggested rare cells of intestinal metaplasia suspicious for Briones's esophaguswith focal mild chronic inflammation and minimal acute inflammation of the distal esophagus. Mild gastritis and benign gastric polyps.H. pylori was negative. She returns now to discuss follow-up surveillance upper endoscopy. She is maintained on famotidine 20 mg orally twice daily and omeprazole 20 mg orally twice daily. The patient states that several months ago she had some increased problems with her reflux disease. She admits though that February they grow 18 acresof pumpkins apparently literally tens of thousands of Sara and it is a very stressful time. She would sometimes forget to take her medication. Most of thetime she is on famotidine 20 mg orally twice daily. She is completely off of the PPIs. Occasionally will she will take 1/3 tablet of famotidine. Her symptoms are intermittent reflux heartburn symptoms. She denies cough. Shedoes not elevate the head of her bed. We did discuss that today. ROS General General: Yes weight change and fatigue; No appetite, colon cancer, breast cancer or weakness HEENT HEENT: No difficulty swallowing, eye injury, eye surgery, swollen glands or hoarseness Endo Endocrine: No thyroid disease, diabetes mellitus, thyroid cancer, Hair loss, heat intolerance or cold intolerance Skin Skin: No rash or changing moles Musc Musculoskeletal: No back problems, arthritis, rheumatoid arthritis, gout or joint pain Cardio Cardiovascular: No murmur, pacemaker, heart disease, atrial fibrillation, high blood pressure, heart attack, heart stent, palpitations, shortness of breat withexertion or chest pain Psych Psychiatric: No depression, anxiety or hearing voices Resp Respiratory: No shortness of breath, No sleep apnea, No cough, No COPD, No asthma, No emphysema and No wheezing Gastro Gastrointestinal: No abdominal pain, Yes nausea or vomiting, Yes diarrhea, No constipation, No blood in stool, Yes acid reflux, No hemorrhoids, No ulcers, No gallbladder problem and No black,tarry stools Hung Hematologic: No blood thinners, No blood disorders, No bleeding, No anemia and No blood clots Neuro Neurologic: No numbness, No tingling and No weakness Exam Const General: cooperative, healthy appearing, comfortable and no acute distress Nutritional Appearance: average body habitus [facility] Head: normal to inspection Eyes General: appearance normal, both eyes and all related structures Neck Neck: normal visual inspection Resp Effort & Inspection: normal respiratory effort Auscultation: clear to auscultation bilaterally Cardio Rate: regular rate Rhythm: regular rhythm GI Inspection: normal to inspection Palpation: soft and no hepatosplenomegaly Skin General: no rashes or lesions noted Neuro General: patient alert, patient awake and patient oriented x3 Extrem General: no calf tenderness Psych Appearance: grossly normal Assessment and Plan Assessment and Plan (1) GERD (gastroesophageal reflux disease): Status: Acute Qualifiers: Esophagitis presence: esophagitis presence not specified Qualified Code(s): K21.9 - Gastro-esophageal reflux disease without esophagitis (2) Barretts esophagus: Status: Acute Qualifiers: Briones's esophagus type: without dysplasia Qualified Code(s): K22.70 -Briones's esophagus without dysplasia Plan: I discussed with her today the findings of the Briones's esophagus on previous biopsy. We extensive discussed conservative measures to assist with reflux control including putting shock blocks underneath the head of her bed and elevating the head of the bed. Avoiding eating within 2 hours of going to sleepand avoiding reflux inducing foods. She will try to do better with being consistent with her famotidine treatment. We then extensively discussed compared and contrasted the difference between famotidine and H2 sandie as well as PPIs. She is currently not on omeprazole or any other proton pump inhibitor. I finally breached the discussion regarding esophageal manometry testing to evaluate functioning of the esophagus. We briefly discussed potential surgical treatment options like laparoscopic repair for hiatal hernia with a surgical reflux wrap procedure. She has had an opportunity to ask and have questions answered. At this point she is hoping that medications could continue to alleviate her problems. Based upon her previous history of Briones's on biopsy we will schedule a repeatsurveillance exam esophagogastroduodenoscopy with biopsy. She has had an opportunity to ask and have questions answered. I appreciate the ongoing opportunity of assisting with her surgical care. Copy: Dr. Go Jj M.D., F.A.C.S. I reviewed the patient's history and physical with her today. She has had an opportunity to ask and have questions answered. We anticipate proceeding with an esophagogastroduodenoscopy with anticipated biopsies and follow-up with Briones's esophagus. Kristian Jj M.D., F.A.C.S. 10/06/23 0622 <Electronically signed by Kristian Jj MD> Cosigner Signature (if applicable): CC: Dr. Go Gonzalez MD; Dr. Kristian Jj MD~ Signed [facility] Work Phone: Procedure note 10-06-2023 Note Date & Type Note Facility 10-06-2023 Procedure note [facility] Procedure note 10-06-2023 Note Date & Type Note Facility 10-06-2023 Procedure note [facility] Evaluation note Note Date & Type Note Facility Evaluation note No assessment information availa ble [facility] Work Phone: Evaluation note Note Date & Type Note Facility Evaluation note Diagnosis Onset Date Barretts esophagus acute GERD (gastroesophageal reflux disease) acute [facility] Work Phone: Reason for referral (narrative) Note Date & Type Note Facility Reason for referral (narrative) No reason for referral information available [facility] Work Phone: Summary Purpose Family History No Family History Records Found Relationship Condition Age at Onset Recorded Date/T debby father Malignant neoplasm Unknown Cerebrovascular accident (CVA) Unknown brother Cardiac disease Unknown Kidney disorder Unknown sister Gastric ulcer Unknown Systemic sclerosis Unknown mother Disorder of thyroid Unknown Hypertension Unknown Advance Directives No Advanced Directives Records Found Advance Directive Response Recorded Date/ Time Advance Directives No July 6:02am Living Will No July 28 6:02am Power of International Trade Analyst No July 28, 2020 6:02am Advance Directive Response Recorded Date/ Time Advance Directives No July 7:02am Living Will No July 28 7:02am Power of International Trade Analyst No July 28, 2020 7:02am Advance Directive Response Recorded Date/ Time Advance Directives No July 7:02am Living Will No October 05, 2023 10:04am Power of International Trade Analyst No October 04 10:04am Advance Directive Response Recorded Date/ Time Advance Directives No July 7:02am Chief Complaint and Reason for Visit Chief Complaint SCREENING Chief Complaint SCREENING CHEST PRESSURE CHEST PRESSURE Chief Complaint SCREENING Repeat EGD 2020 Reason for Visit Barretts esophagus GERD (gastroesophageal reflux disease) Chief Complaint Admit Date SCREENING October 30, 2024 2:29p m Additional Source Comments INFORMATION SOURCE (unrecogn ized section and content) DATE CREATED AUTHOR 12/05/2017 [facility] ([place]) DATE CREATED AUTHOR AUTHOR'S ORGANIZ ATION 11/06/2024 [facility] Goals (unrecognized section and content) Goals may be documented in a n alternate sectionGoals may be documented in an alternate sectionGoals may be documented in an alternate sectionGoals may be documented in an alternate sectionGoals may be documented in an alternate sectionGoals may be documented in an alternate sectionGoals may be documented in an alternate sectionGoals may be documented in an alternate sectionGoals may be documented in an alternate sectionGoals may be documented in an alternate sectionGoals may be documented in an alternate section Care Teams (unrecognized sec tion and content) Team Status: Active Member Role Status Dates Dr. Go Gonzalez MD Family Provider Active Dr. Go Gonzalez MD Primary Care Provider Active Team Status: Inactive Member Role Status Dates Dr. Go Gonzalez MD Primary Care Provider Active Dr. Jus Villarreal DO Attending Provider Active Team Status: Inactive Member Role Status Dates Dr. Go Gonzalez MD Primary Care Provider Active Dr. Chase Lambert MD Attending Provider, Referring Pr ovider Active Team Status: Inactive Member Role Status Dates Dr. Go Gonzalez MD Primary Care Provi so, Attending Provider, Referring Provider Active Team Status: Active Member Role Status Dates Dr. Go Gonzalez MD Primary Care Provi so, Referring Provider, Other Provider Active Dr. Lalo Dhillon MD Attending Provider Active Team Status: Active Member Role Status Dates Dr. Go Gonzalez MD Primary Care Provider Active JOHN Aguila Attending Provider, Referring P rovider Active Team Status: Inactive Member Role Status Dates Dr. Go Gonzalez MD Primary Care Provider Active Dr. Jus Villarreal DO Attending Provider, Referring Provider Active Team Status: Inactive Member Role Status Dates Dr. Go Gonzalez MD Primary Care Provider Active Malika GONZALEZ PA Attending Provider, Referring P rovider Active Team Status: Inactive Member Role Status Dates Dr. Go Gonzalez MD Primary Care Provider Active Dr. Kristian Jj MD Attending Provider, Referring Provider Active Team Status: Active Member Role Status Dates Dr. Go Gonzalez MD Primary Care Provider, Referring Provider Active Dr. Kristian Jj MD Attending Provider, Other Prov ider Active Team Status: Inactive Member Role Status Dates Dr. Go Gonzalez MD Primary Care Provider, Referring Provider Active Dr. Kristian Jj MD Attending Provider Active Team Status: Active Member Role Status Dates Dr. Go Gonzalez MD Primary Care Provi so, Attending Provider, Referring Provider Active Team Status: Inactive Member Role Status Dates Dr. Go Gonzalez MD Primary Care Provider Active Start: September 09, 2024 End: September 09, 2024 Dr. Jus Villarreal DO Attending Provider Active Start: September 09, 2024 End: September 09, 2024 Dr. Jus Villarreal DO Referring Provider Active Start: September 09, 2024 End: September 09, 2024 Team Status: Active Member Role Status Dates Dr. Go Gonzalez MD Primary Care Provider Active Team Status: Inactive Member Role Status Dates Dr. Go Gonzalez MD Primary Care Provider Active Start: October 30, 2024 End: October 30, 2024 Dr. Go Gonzalez MD Attending Provider Active Start: October 30, 2024 End: October 30, 2024 Dr. Go Gonzalez MD Referring Provider Active Start: October 30, 2024 End: October 30, 2024 FOR RECORDS PERTAINING TO PATIENTS WHO ARE [...] BE BASED ON THE PRIMARY CLINICAL RECORDS. [employer] provides no warranty or guarantee of the accuracy or completeness of information in this document.
[2025-03-07 10:00] LABS: AST(SGOT) 20 U/L (<=31); Alanine Aminotransfer ALT/SGPT 23 U/L (<=34); Albumin, Serum 4.2 g/dL (3.4-4.8); Alkaline Phosphatase 86 U/L (35-104); Anion Gap 11 (5-15); BUN 11 mg/dL (4-19); BUN/Creat Ratio 11.5 RATIO (10-20); Calcium,Total 8.9 mg/dL (7.6-11.0); Carbon Dioxide 24.4 mmol/L (21.0-32.0); Chloride 104 mmol/L (98-108); Globulin 2.4 g/dL (2.2-4.2); Glucose 80 mg/dL (70-99); Potassium 4.1 mmol/L (3.3-5.1)
== END | disposition home or self-care (01) ==
LOC: LAB 08:10
PROVIDERS: PCP Family Medicine; Referring Provider Internal Medicine Endocrinology, Diabetes & Metabolism; Visit Provider Internal Medicine Endocrinology, Diabetes & Metabolism
DX: E03.8 Other specified hypothyroidism (principal); R74.8 Abnormal levels of other serum enzymes
CPT/HCPCS: 36415; 80053; 83036; 84443